=== PATIENT | female | born 1950 | race Caucasian/White ===

== ENCOUNTER 2024-07-27 11:37 | Observation (INO) | payer MEDICARE ==
[2024-07-27] MEDS ORDERED: Sterile H2O 10 ml IJ ONE (12:22)
[2024-07-27] MEDS ORDERED: solu-MEDROL ONE (12:23)
[2024-07-27] MEDS ORDERED: DUONEB 0.5-3 MG/3 ml Neb IH ONE (12:26)
[2024-07-27] MEDS: solu-MEDROL 125 MG, Sterile H2O 10 ml 2 ML IV ONE (12:34)
[2024-07-27] MEDS: DUONEB 0.5-3 MG/3 ml Neb IH ONE (12:38)
[2024-07-27 12:47] LABS: Absolute Neutrophil Ct (ANC) 3.47 x10^3/uL (1.56-6.13); BASOPHIL % 0.2 % (0.1-1.2); Basophil (Absolute #) 0.01 x10^3/uL (0.01-0.08); Eosinophil % 0.5 % (0.7-5.8); Eosinophil (Absolute #) 0.02 x10^3/uL (0.04-0.36); Hematocrit 41.3 % (34.1-44.9); Hemoglobin 14.6 g/dL (11.2-15.7); IMMATURE GRAN # 0.02 x10^3u/L (0.001-0.031); IMMATURE GRAN % 0.5 % (0.001-0.429); Lymphocyte (Absolute #) 0.46 x10^3/uL (1.18-3.74); Lymphocytes % 10.8 % (19.3-51.7); Mean Cell Volume 84.8 fL (79.4-94.8); Mean Corpuscular Hgb Concent. 35.4 g/dL (32.2-35.5); Mean Platelet Volume 9.9 fL (9.4-12.3); Monocyte (Absolute #) 0.29 x10^3/uL (0.24-0.86); Monocytes % 6.8 % (4.7-12.5); Neutrophil % 81.2 % (34.0-71.1); Platelet Count 254 x10^3/uL (182-369); Red Blood Count 4.87 x10^6/uL (3.93-5.22); Red Cell Distribution Width 12.5 % (11.7-14.4); White Blood Count 4.3 x10^3/uL (3.98-10.04)
--- NOTE | 2024-07-27 12:55 | XRAY ---
Indication: Short of breath. Comparison: None Portable chest hyperinflated and clear with incidental tiny left lung calcified granuloma. Heart not enlarged. Bony thorax intact with osteopenia, mild degenerative changes, and prior right axillary luciano dissection. Comparison: Nonacute hyperinflated chest with chronic features.
[2024-07-27 13:11] LABS: ALBUMIN 4.4 g/dL (3.5-5.0); ANION GAP 13.8 MEQ/L (5-15); BILIRUBIN,TOTAL 0.9 mg/dL (0.2-1.3); Calcium 9.1 mg/dL (8.4-10.2); Creatinine 1 0.65 mg/dL (0.52-1.04); EST GLOMERULAR FILTRATION RATE 94.1 ML/MIN; MAGNESIUM 1.5 mg/dL (1.6-2.3); Potassium 3.5 mmol/L (3.5-5.1)
[2024-07-27 13:25] LABS: INFLUENZA B NEGATIVE (NEGATIVE); RESPIRATORY SYNCTIAL VIRUS NEGATIVE (NEGATIVE); SARS-CoV-2 Xpert Express NEGATIVE (NEGATIVE)
[2024-07-27 13:58] LABS: INFLUENZA A POSITIVE (NEGATIVE)
[2024-07-27] MEDS ORDERED: VIBRAMYCIN 100 MG IV ONE (14:14)
[2024-07-27] MEDS ORDERED: Tamiflu 75MG Capsule PO ONE (14:14)
[2024-07-27] MEDS ORDERED: D5w 100ML Mini Bag 100 ML 100 ML IV ONE (14:15)
[2024-07-27] MEDS: Tamiflu 75MG Capsule PO ONE (14:15)
[2024-07-27] MEDS: VIBRAMYCIN 100 MG*** 100 MG in Dextrose 5%/Water IV Soln. 100ML PLUS BAG 100 ML IV SCH (14:16)
--- NOTE | 2024-07-27 14:25 | ERPHSYRPT ---
- History of Present Illness Time Seen by Provider: 07/27/24 11:39 Source: patient, family Exam Limitations: no limitations Patient Subjective Stated Complaint: SOB Triage Nursing Assessment: Patient ambulated back to ED and transferred self to bed. Patient A+O X.3 Patient's skin pink, warm and dry. Patient was seen at [facility] in [place] and tested negative for flu. Patient was sent to ER for eval due to SOB and low O2 sat. Initial O2 sat noted was 88% on room air. O2 applied at 2 liters per N/C. Patient denies pain or discomfort. Patient states since Wednesday she has had productive cough with thick yellow sputum, headache/bodyaches and fatigue since Wednesday. Lungs noted to have wheezing thoughout. Physician History: 73-year-old female with multiple medical problems including oral cancer status p ost resection/chemo/radiation completed last month, PE/DVT on Eliquis, hypertension, hyperlipidemia, COPD, tobacco abuse is sent in [facility] from [facility] for further evaluation of patient's oxygen saturation of 88% on room air. Patient oxygen saturation is 88% on room air on presentation, placed on 2 L oxygen and improved in low 90s. Patient reports worsening cough, aches and pains all over and increasing shortness of breath for the last 2 to 3 days. Has been around family members with positive influenza. Denies any chest pain or palpitations. No fever or chills reported. No abdominal pain nausea vomiting. Allergies/Adverse Reactions: ciprofloxacin [From Cipro] Allergy (Verified 07/27/24 11:47) erythromycin base Allergy (Verified 07/27/24 11:47) Penicillins Allergy (Verified 07/27/24 11:47) Sulfa (Sulfonamide Antibiotics) Allergy (Verified 07/27/24 11:47) Home Medications: Apixaban [Eliquis] 1 tab PO BID 07/27/24 [History] Cholecalciferol (Vitamin D3) [Vitamin D] 2,000 unit PO DAILY 07/27/24 [History] Levothyroxine Sodium 75 Mcg [Synthroid 75 Mcg] 1 tab PO DAILY 07/27/24 [History] Metoprolol Succinate 100 mg [Toprol Xl 100 MG] 1 tab PO DAILY 07/27/24 [History] PANTOPRAZOLE 40 mg Tablet [Protonix 40MG Tablet] 1 tab PO BID 07/27/24 [History] Potassium Chloride 1 tab PO DAILY 07/27/24 [History] Simvastatin 1 tab PO DAILY 07/27/24 [History] Spironolactone 1 tab PO DAILY 07/27/24 [History] Torsemide 20 mg [Demadex 20 mg] 1 tab PO DAILY 07/27/24 [History] Hx Influenza Vaccination/Date Given: No Hx Pneumococcal Vaccination/Date Given: No Immunizations Up to Date: Yes Travel Risk - International Travel Have you traveled outside of the country in past 3 weeks: No - Emerging Infectious Disease Are you exhibiting symptoms associated with any current EIDs: Yes Symptoms: Cough: New Onset, Diarrhea, Headaches/Body Aches/, Shortness of Breath - Review of Systems Constitutional: Fatigue, Weakness Eyes: No Symptoms Ears, Nose, & Throat: Mouth Pain, Throat Swelling Respiratory: Cough, Dyspnea Cardiac: No Symptoms Abdominal/Gastrointestinal: No Symptoms Genitourinary Symptoms: No Symptoms Musculoskeletal: Arthralgias Skin: No Symptoms Neurological: No Symptoms Endocrine: No Symptoms Immunological/Allergic: No Symptoms - Past Medical History Pertinent Past Medical History: Yes Neurological History: No Pertinent History ENT History: No Pertinent History Cardiac History: High Cholesterol, Hypertension Respiratory History: No Pertinent History Endocrine Medical History: Hypothyroidism Musculoskeletal History: No Pertinent History GI Medical History: GERD Female Reproductive Disorders: Breast Cancer Other Medical History: 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 Breast cancer right breast. 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 Removal of polyps from vocal cords. partial removal of thyroid. muliple surgeries on kristy feet. Removal of part of tongue and left jaw. - Social History Smoking Status: Current some day smoker How long have you smoked: years Exposure to second hand smoke: No Drug Use: none - Social Determinants of Health Will the patient participate in the screening: Yes Do you worry about a steady place to live?: No Do you have any problems with any of the following?: No known problems In the past 12 months,have you had to go without utilities?: No Transportation Issues: No Has anyone in your support network made you feel unsafe?: No Have you or anyone in your house had to go without enough: No - Nursing Vital Signs Nursing Vital Signs: Initial Vital Signs Respiratory Rate 62 H 07/27/24 11:46 Blood Pressure 165/67 07/27/24 11:46 O2 Sat by Pulse Oximetry 95 07/27/24 11:46 Pain Scale Pain Intensity 0 - Physical Exam General Appearance: no apparent distress, alert Eye Exam: PERRL/EOMI Ears, Nose, Throat Exam: hearing grossly normal, pharyngeal erythema Neck Exam: normal inspection, non-tender, supple, full range of motion Respiratory Exam: diminished breath sounds, wheezing Cardiovascular/Chest Exam: normal heart sounds, regular rate/rhythm Abdominal/Gastrointestinal Exam: soft, normal bowel sounds, No tenderness Extremity Exam: non-tender, normal range of motion, normal inspection Neurologic Exam: alert, oriented x 3, cooperative, director of digital technology II-XII nml as tested Skin Exam: normal color SpO2 Interpretation: O2 applied SpO2: 91 O2 Delivery: Nasal Cannula - Course EKG Interpreted by Me: RATE (54), Sinus Shree, NORMAL AXIS, Q-wave, Non-specific ST Changes Ordered Tests: Active Orders 24 hr Category Date Time Status Laboratory Tech STAT Care 07/27/24 12:05 Active EKG-ER Only STAT Care 07/27/24 12:04 Active IV Insertion STAT Care 07/27/24 12:04 Active Oxygen-ED Only Nasal Cannula 2 lpm Care 07/27/24 12:04 Active CHEST 1 VIEW (PORTABLE) Stat Exams 07/27/24 12:04 Completed BLOOD CULTURE Stat Lab 07/27/24 12:30 Received CBC W DIFF Stat Lab 07/27/24 12:48 Completed CMP Stat Lab 07/27/24 12:20 Completed Lactic Acid Stat Lab 07/27/24 12:30 Completed MAGNESIUM Stat Lab 07/27/24 12:20 Completed NT PRO BNPII Stat Lab 07/27/24 12:20 Completed TROPONIN Q4H Lab 07/27/24 12:20 Completed TROPONIN Q4H Lab 07/27/24 16:15 Ordered TROPONIN Q4H Lab 07/27/24 20:15 Ordered Respiratory Therapy Assessment DAILY RT 07/27/24 12:54 Active Transfer Order Routine Transfer 07/27/24 Ordered Medication Summary Generic Name Dose Route Start Last Admin Trade Name Freq PRN Reason Stop Dose Admin Doxycycline Hyclate 100 mg/ 100 mls @ 100 mls/hr 07/27/24 22:00 07/27/24 14:16 Dextrose IV 08/26/24 21:59 100 mls/hr Q12HT HERMINIA Administration Discontinued Medications Generic Name Dose Route Start Last Admin Trade Name Adelina PRN Reason Stop Dose Admin Albuterol/Ipratropium 3 ml 07/27/24 12:04 07/27/24 12:38 Ipratropium/Albuterol Sulfate 3 Ml Ampul.Neb IH 07/27/24 12:05 3 ml STAT ONE Administration Albuterol/Ipratropium Confirm 07/27/24 12:26 Ipratropium/Albuterol Sulfate 3 Ml Ampul.Neb Administered 07/27/24 12:27 Dose 3 ml IH .STK-MED ONE Methylprednisolone Sodium 0 mg 07/27/24 12:04 07/27/24 12:34 Succinate 125 mg/ Sterile IV 07/27/24 12:05 125 mg Water 2 ml STAT ONE Administration Doxycycline Hyclate Confirm 07/27/24 14:14 Doxycycline Hyclate 100 Mg/Vial Injection Administered 07/27/24 14:15 Dose 100 mg IV .STK-MED ONE Aztreonam 2 gm/ Sodium 100 mls @ 200 mls/hr 07/27/24 13:52 Chloride IV 07/27/24 14:21 STAT ONE Dextrose Confirm 07/27/24 14:15 D5w 100ml Mini Bag 100 Ml Administered 07/27/24 14:16 Dose 100 mls @ ud IV .STK-MED ONE Methylprednisolone Sodium Succinate Confirm 07/27/24 12:23 Methylprednis Sod Succ 125 Mg/2 Ml Vial Administered 07/27/24 12:24 Dose 125 mg .ROUTE .STK-MED ONE Oseltamivir Phosphate 75 mg 07/27/24 14:03 07/27/24 14:15 Oseltamivir 75 Mg Cap PO 07/27/24 14:04 75 mg STAT ONE Administration Oseltamivir Phosphate Confirm 07/27/24 14:14 Oseltamivir 75 Mg Cap Administered 07/27/24 14:15 Dose 75 mg PO .STK-MED ONE Sterile Water Confirm 07/27/24 12:22 Water For Injection,Sterile 10 Ml Vial Administered 07/27/24 12:23 Dose 10 ml IJ .STK-MED ONE Lab/Rad Data: Laboratory Result Diagrams 07/27/24 12:48 07/27/24 12:20 Laboratory Results 07/27/24 07/27/24 07/27/24 Range/Units 12:48 12:32 12:30 WBC 4.3 (3.98-10.04) x10^3/uL RBC 4.87 (3.93-5.22) x10^6/uL Hgb 14.6 (11.2-15.7) g/dL Hct 41.3 (34.1-44.9) % MCV 84.8 (79.4-94.8) fL MCH 30.0 (25.6-32.2) pg MCHC 35.4 (32.2-35.5) g/dL RDW 12.5 (11.7-14.4) % Plt Count 254 (182-369) x10^3/uL MPV 9.9 (9.4-12.3) fL Gran % 81.2 H (34.0-71.1) % Immature Gran % (Auto) 0.5 H (0.001-0.429) % Nucleat RBC Rel Count 0.0 (0.00-0.2) % Eos # (Auto) 0.02 L (0.04-0.36) x10^3/uL Immature Gran # (Auto) 0.02 (0.001-0.031) x10^3u/L Absolute Lymphs (auto) 0.46 L (1.18-3.74) x10^3/uL Absolute Monos (auto) 0.29 (0.24-0.86) x10^3/uL Absolute Nucleated RBC 0.00 (0.00-0.012) x10^3u/L Lymphocytes % 10.8 L (19.3-51.7) % Monocytes % 6.8 (4.7-12.5) % Eosinophils % 0.5 L (0.7-5.8) % Basophils % 0.2 (0.1-1.2) % Absolute Granulocytes 3.47 (1.56-6.13) x10^3/uL Basophils # 0.01 (0.01-0.08) x10^3/uL Sodium (135-145) mmol/L Potassium (3.5-5.1) mmol/L Chloride (98-107) mmol/L Carbon Dioxide (22-30) mmol/L Anion Gap (5-15) MEQ/L BUN (7-17) mg/dL Creatinine (0.52-1.04) mg/dL Estimated GFR ML/MIN Glucose (74-106) mg/dL Lactic Acid 1.3 (0.4-2.0) Calcium (8.4-10.2) mg/dL Magnesium (1.6-2.3) mg/dL Total Bilirubin (0.2-1.3) mg/dL AST (14-36) U/L ALT (0-35) U/L Alkaline Phosphatase (38-126) U/L Troponin I (0.000-0.033) ng/mL NT-Pro-B Natriuret Pep (<300) pg/mL Serum Total Protein (6.3-8.2) g/dL Albumin (3.5-5.0) g/dL Influenza Type A Ag POSITIVE A (NEGATIVE) Influenza Type B Ag NEGATIVE (NEGATIVE) RSV (PCR) NEGATIVE (NEGATIVE) SARS-CoV-2 (PCR) NEGATIVE (NEGATIVE) 07/27/24 07/27/24 Range/Units 12:20 12:20 WBC (3.98-10.04) x10^3/uL RBC (3.93-5.22) x10^6/uL Hgb (11.2-15.7) g/dL Hct (34.1-44.9) % MCV (79.4-94.8) fL MCH (25.6-32.2) pg MCHC (32.2-35.5) g/dL RDW (11.7-14.4) % Plt Count (182-369) x10^3/uL MPV (9.4-12.3) fL Gran % (34.0-71.1) % Immature Gran % (Auto) (0.001-0.429) % Nucleat RBC Rel Count (0.00-0.2) % Eos # (Auto) (0.04-0.36) x10^3/uL Immature Gran # (Auto) (0.001-0.031) x10^3u/L Absolute Lymphs (auto) (1.18-3.74) x10^3/uL Absolute Monos (auto) (0.24-0.86) x10^3/uL Absolute Nucleated RBC (0.00-0.012) x10^3u/L Lymphocytes % (19.3-51.7) % Monocytes % (4.7-12.5) % Eosinophils % (0.7-5.8) % Basophils % (0.1-1.2) % Absolute Granulocytes (1.56-6.13) x10^3/uL Basophils # (0.01-0.08) x10^3/uL Sodium 123 L (135-145) mmol/L Potassium 3.5 (3.5-5.1) mmol/L Chloride 81 L (98-107) mmol/L Carbon Dioxide 32 H (22-30) mmol/L Anion Gap 13.8 (5-15) MEQ/L BUN 12 (7-17) mg/dL Creatinine 0.65 (0.52-1.04) mg/dL Estimated GFR 94.1 ML/MIN Glucose 89 (74-106) mg/dL Lactic Acid (0.4-2.0) Calcium 9.1 (8.4-10.2) mg/dL Magnesium 1.5 L (1.6-2.3) mg/dL Total Bilirubin 0.90 (0.2-1.3) mg/dL AST 43 H (14-36) U/L ALT 39 H (0-35) U/L Alkaline Phosphatase 98 (38-126) U/L Troponin I < 0.012 (0.000-0.033) ng/mL NT-Pro-B Natriuret Pep 196 (<300) pg/mL Serum Total Protein 7.0 (6.3-8.2) g/dL Albumin 4.4 (3.5-5.0) g/dL Influenza Type A Ag (NEGATIVE) Influenza Type B Ag (NEGATIVE) RSV (PCR) (NEGATIVE) SARS-CoV-2 (PCR) (NEGATIVE) - Progress Progress: improved, re-examined Air Movement: fair Progress Note: 07/27/24 14:39 73-year-old with multiple medical problems including PE/DVT on Eliquis, COMMUNICATIONS ANALYST D/tobacco use/hypertension/oral cancer status post chemoradiation recently is evaluated for increasing shortness of breath and patient was hypoxic with sats in upper 80s. She is placed on 2 L oxygen with improvement in saturation to low 90s and given Solu-Medrol and DuoNeb, feeling much better on reevaluation. Chest x-ray is negative for any acute cardiopulmonary findings. EKG is sinus bradycardia with no ST elevation, does have Q waves. Normal white count, chemistries with a sodium of 123, no previous comparison available. Patient has nonfocal neuroexam. She is not confused or altered at all. She has a positive influenza A and started on Tamiflu. Has mild Hypokit [employer], will do IV replacement. Patient is unsure about her history of hyponatremia in the past. Will leave it up to hospitalist to manage it I believe patient has a combination of COPD exacerbation and influenza, started on antibiotics. She is currently on 2 L oxygen, does not use oxygen at home. Discussed with Dr. Shelby and patient is being admitted. Discussed the results of workup with patient and family and plan of admission which they understand and agree. Blood Culture(s) Obtained: Yes Antibiotics given: Yes Discussed with Dr.: Other (Dr. Shelby hospitalist) Will see patient in: hospital (observation) Counseled pt/family regarding: lab results, diagnosis, rad results, smoking cessation Medical Desision Making - Independent Historian Additional History obtained from: Child - Discussion of managment Care discussed with:: hospitalist Reviewed:: Test results Agreed on:: Treatment plan, place in obs Will see patient: in hospital - Diagnostic Testing Diagnostic test were ordered, analyzed, and reviewed by me: Yes Radiological Interpretation: Reviewed by me - Risk of complications The pt has a mod risk of morbidity or mortality based on: Need for prescription drug management The pt has a high risk of morbidity or mortality based on: Decision regarding hospitilization or escalation of hosp level of care - Departure Departure Disposition: Observation Clinical Impression: COPD with acute exacerbation, Influenza A, Hypomagnesemia, Hyponatremia Condition: Stable Critical Care Time: No Referrals: ALIA ROSARIO MD [Primary Care Provider] - Follow up/PCP as directed Instructions: Chronic Obstructive Pulmonary Disease
[2024-07-27 14:59] LABS: Slide Review 1 YES
--- NOTE | 2024-07-27 15:42 | PCM.HP ---
<NENA AVILA - Last Filed: 07/27/24 16:17> History of Present Illness - Chief Complaint Chief Complaint: Dyspnea/Flu A/ hyponatremia/hypomagnesemia/COPD exacerbation Date: 07/27/24 History of Present Illness: Ms. Drew is a 73-year-old female with a pmhx of oral cancer status post resection/chemo/radiation completed last month, PE/DVT (Apr 2024) on Eliquis, hypertension,right breast cancer s/p lumpectomy/radiation, partial thyroidectomy (on synthroid), hyperlipidemia, COPD, tobacco abuse who presented to ED from urgent care for further evaluation of hypoxia 07/27/24. Patient has complaints of a productive cough with yellow sputum, shortness of breath,diarrhea, chills, headache, and body aches since 07/21/24. She reports was diagnosed today with influenza and her brother last week secondary to complications of influenza. Denies fever, cp, abdominal pain, MATOS, dizziness, N/V/D. Upon arrival to ED patient was hypertensive, tachypneic, and hypoxic with oxygen saturations in the low 80s on RA. Patient was placed on 2L NC with noted improvement. CXR demonstrates hyperinflated lungs with chronic features. Lab findings remarkable for hyponatremia and hypomagnesemia, and positive influenza A. Patient given Tamiflu, doxycycline, aztreonam, duonebs and solumedrol in ED. Admit for COPD exacerbation secondary to influenza A, hyponatremia, and hypomagnesemia. Plan for supportive care and electrolyte replenishment. - Review of Systems Constitutional: Chills, Fatigue, Weakness Eyes: No Symptoms Ears, Nose, & Throat: No Symptoms Respiratory: Cough, Short Of Breath Cardiac: No Symptoms Abdominal/Gastrointestinal: No Symptoms Genitourinary Symptoms: No Symptoms Musculoskeletal: No Symptoms Skin: No Symptoms Neurological: No Symptoms Psychological: No Symptoms Endocrine: No Symptoms Hematologic/Lymphatic: No Symptoms Immunological/Allergic: No Symptoms Medications & Allergies Home Medications: Home Medication List Apixaban [Eliquis] 1 tab PO BID 07/27/24 [History Confirmed 07/27/24] Cholecalciferol (Vitamin D3) [Vitamin D] 2,000 unit PO DAILY 07/27/24 [History Confirmed 07/27/24] Levothyroxine Sodium 75 Mcg [Synthroid 75 Mcg] 1 tab PO DAILY 07/27/24 [History Confirmed 07/27/24] Metoprolol Succinate 100 mg [Toprol Xl 100 MG] 1 tab PO DAILY 07/27/24 [History Confirmed 07/27/24] PANTOPRAZOLE 40 mg Tablet [Protonix 40MG Tablet] 1 tab PO BID 07/27/24 [History Confirmed 07/27/24] Potassium Chloride 1 tab PO DAILY 07/27/24 [History Confirmed 07/27/24] Simvastatin 1 tab PO DAILY 07/27/24 [History Confirmed 07/27/24] Spironolactone 1 tab PO DAILY 07/27/24 [History Confirmed 07/27/24] Allergies/Adverse Reactions: Allergies Allergy/AdvReac Type Severity Reaction Status Date / Time ciprofloxacin [From Cipro] Allergy Verified 07/27/24 11:47 erythromycin base Allergy Verified 07/27/24 11:47 Penicillins Allergy Verified 07/27/24 15:45 Sulfa (Sulfonamide Allergy Verified 07/27/24 11:47 Antibiotics) - Past Medical History Past Medical History: Yes Neurological History: No Pertinent History ENT History: No Pertinent History Cardiac History: High Cholesterol, Hypertension Respiratory History: No Pertinent History Endocrine Medical History: Hypothyroidism Musculoskelatal History: No Pertinent History GI Medical History: GERD Reproductive Disorders: Breast Cancer Comment: 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 Breast cancer right breast. 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 Removal of polyps from vocal cords. partial removal of thyroid. muliple surgeries on kristy feet. Removal of part of tongue and left jaw. - Social History Smoking Status: Current some day smoker How long have you smoked: years Exposure to second hand smoke: No Alcohol: None Drug Use: none - Social Determinants of Health Will the patient participate in the screening: Yes Do you worry about a steady place to live?: No Do you have any problems with any of the following?: No known problems In the past 12 months,have you had to go without utilities?: No Have you or anyone in your house had to go without enough: No Transportation Issues: No Has anyone in your support network made you feel unsafe?: No - Physical Exam Vital Signs: Vital Signs - 24 hr Temp Pulse Resp BP BP Pulse Ox 07/27/24 15:00 58 L 18 141/75 95 07/27/24 14:46 91 L 07/27/24 14:30 157/70 96 07/27/24 14:00 60 18 135/64 91 L 07/27/24 13:30 65 20 130/62 95 07/27/24 13:00 62 24 137/90 93 L 07/27/24 12:55 92 L 07/27/24 12:30 58 H 149/83 97 07/27/24 12:00 61 H 138/88 93 L 07/27/24 11:48 98.5 F 61 35 H 165/67 88 L 07/27/24 11:46 62 H 165/67 95 General Appearance: no apparent distress Neurologic Exam: alert, oriented x 3, cooperative Eye Exam: PERRL/EOMI Ears, Nose, Throat Exam: normal ENT inspection Neck Exam: normal inspection Respiratory Exam: diminished breath sounds Cardiovascular Exam: regular rate/rhythm, normal heart sounds Gastrointestinal/Abdomen Exam: soft, normal bowel sounds Pelvic Exam: not done Rectal Exam: deferred Back Exam: normal inspection Extremity Exam: normal inspection Skin Exam: normal color Results - Labs Lab/Micro Results: Lab Results-Last 24 Hours 07/27/24 07/27/24 07/27/24 Range/Units 12:20 12:20 12:30 WBC (3.98-10.04) x10^3/uL RBC (3.93-5.22) x10^6/uL Hgb (11.2-15.7) g/dL Hct (34.1-44.9) % MCV (79.4-94.8) fL MCH (25.6-32.2) pg MCHC (32.2-35.5) g/dL RDW (11.7-14.4) % Plt Count (182-369) x10^3/uL MPV (9.4-12.3) fL Gran % (34.0-71.1) % Immature Gran % (Auto) (0.001-0.429) % Nucleat RBC Rel Count (0.00-0.2) % Eos # (Auto) (0.04-0.36) x10^3/uL Immature Gran # (Auto) (0.001-0.031) x10^3u/L Absolute Lymphs (auto) (1.18-3.74) x10^3/uL Absolute Monos (auto) (0.24-0.86) x10^3/uL Absolute Nucleated RBC (0.00-0.012) x10^3u/L Lymphocytes % (19.3-51.7) % Monocytes % (4.7-12.5) % Eosinophils % (0.7-5.8) % Basophils % (0.1-1.2) % Absolute Granulocytes (1.56-6.13) x10^3/uL Basophils # (0.01-0.08) x10^3/uL Sodium 123 L (135-145) mmol/L Potassium 3.5 (3.5-5.1) mmol/L Chloride 81 L (98-107) mmol/L Carbon Dioxide 32 H (22-30) mmol/L Anion Gap 13.8 (5-15) MEQ/L BUN 12 (7-17) mg/dL Creatinine 0.65 (0.52-1.04) mg/dL Estimated GFR 94.1 ML/MIN Glucose 89 (74-106) mg/dL Lactic Acid 1.3 (0.4-2.0) Calcium 9.1 (8.4-10.2) mg/dL Magnesium 1.5 L (1.6-2.3) mg/dL Total Bilirubin 0.90 (0.2-1.3) mg/dL AST 43 H (14-36) U/L ALT 39 H (0-35) U/L Alkaline Phosphatase 98 (38-126) U/L Troponin I < 0.012 (0.000-0.033) ng/mL NT-Pro-B Natriuret Pep 196 (<300) pg/mL Serum Total Protein 7.0 (6.3-8.2) g/dL Albumin 4.4 (3.5-5.0) g/dL Influenza Type A Ag (NEGATIVE) Influenza Type B Ag (NEGATIVE) RSV (PCR) (NEGATIVE) SARS-CoV-2 (PCR) (NEGATIVE) Slides for Path Review 07/27/24 07/27/24 Range/Units 12:32 12:48 WBC 4.3 (3.98-10.04) x10^3/uL RBC 4.87 (3.93-5.22) x10^6/uL Hgb 14.6 (11.2-15.7) g/dL Hct 41.3 (34.1-44.9) % MCV 84.8 (79.4-94.8) fL MCH 30.0 (25.6-32.2) pg MCHC 35.4 (32.2-35.5) g/dL RDW 12.5 (11.7-14.4) % Plt Count 254 (182-369) x10^3/uL MPV 9.9 (9.4-12.3) fL Gran % 81.2 H (34.0-71.1) % Immature Gran % (Auto) 0.5 H (0.001-0.429) % Nucleat RBC Rel Count 0.0 (0.00-0.2) % Eos # (Auto) 0.02 L (0.04-0.36) x10^3/uL Immature Gran # (Auto) 0.02 (0.001-0.031) x10^3u/L Absolute Lymphs (auto) 0.46 L (1.18-3.74) x10^3/uL Absolute Monos (auto) 0.29 (0.24-0.86) x10^3/uL Absolute Nucleated RBC 0.00 (0.00-0.012) x10^3u/L Lymphocytes % 10.8 L (19.3-51.7) % Monocytes % 6.8 (4.7-12.5) % Eosinophils % 0.5 L (0.7-5.8) % Basophils % 0.2 (0.1-1.2) % Absolute Granulocytes 3.47 (1.56-6.13) x10^3/uL Basophils # 0.01 (0.01-0.08) x10^3/uL Sodium (135-145) mmol/L Potassium (3.5-5.1) mmol/L Chloride (98-107) mmol/L Carbon Dioxide (22-30) mmol/L Anion Gap (5-15) MEQ/L BUN (7-17) mg/dL Creatinine (0.52-1.04) mg/dL Estimated GFR ML/MIN Glucose (74-106) mg/dL Lactic Acid (0.4-2.0) Calcium (8.4-10.2) mg/dL Magnesium (1.6-2.3) mg/dL Total Bilirubin (0.2-1.3) mg/dL AST (14-36) U/L ALT (0-35) U/L Alkaline Phosphatase (38-126) U/L Troponin I (0.000-0.033) ng/mL NT-Pro-B Natriuret Pep (<300) pg/mL Serum Total Protein (6.3-8.2) g/dL Albumin (3.5-5.0) g/dL Influenza Type A Ag POSITIVE A (NEGATIVE) Influenza Type B Ag NEGATIVE (NEGATIVE) RSV (PCR) NEGATIVE (NEGATIVE) SARS-CoV-2 (PCR) NEGATIVE (NEGATIVE) Slides for Path Review YES - Radiology Impressions Radiology Exams & Impressions: Radiology Procedures Category Date Time Status CHEST 1 VIEW (PORTABLE) Stat Exams 07/27/24 12:04 Completed - Other Procedures and Tests Respiratory Therapy 07/27/24 12:54 Respiratory Therapy Assessment DAILY Assessment/Plan (1) Acute respiratory failure with hypoxia Current Visit: Yes Status: Acute Assessment & Plan: -CXR reviewed with hyperinflated with chronic findings -Secondary to Flu A/copd exacerbation -Supplemental oxygen with goal spo2 > 91% -RT eval -Nebs/INH -Tamiflu for influenza A -consider CT /pulm consult if no improvement -Flu A + -Solumedrol 40mg bid -ABG if significant hypoxia/ lethargy Code(s): J96.01 - ACUTE RESPIRATORY FAILURE WITH HYPOXIA (2) Influenza A Current Visit: Yes Status: Acute Assessment & Plan: -see ARF -Tamiflu -Supportive care Code(s): J10.1 - FLU DUE TO OTH IDENT INFLUENZA VIRUS W OTH RESP MANIFEST (3) COPD with acute exacerbation Current Visit: Yes Status: Acute Assessment & Plan: -See ARF Code(s): J44.1 - CHRONIC OBSTRUCTIVE PULMONARY DISEASE W (ACUTE) EXACERBATION (4) History of pulmonary embolism Current Visit: Yes Status: Acute Assessment & Plan: -Diagnosed April 2024 Continue home Eliquis Code(s): Z86.711 - PERSONAL HISTORY OF PULMONARY EMBOLISM (5) HTN (hypertension) Current Visit: Yes Status: Acute Assessment & Plan: -continue home meds Code(s): I10 - ESSENTIAL (PRIMARY) HYPERTENSION (6) HLD (hyperlipidemia) Current Visit: Yes Status: Acute Assessment & Plan: -continue statin Code(s): E78.5 - HYPERLIPIDEMIA, UNSPECIFIED (7) Smoker Current Visit: Yes Status: Acute Assessment & Plan: -advised cessation - nicotine patch Code(s): F17.200 - NICOTINE DEPENDENCE, UNSPECIFIED, UNCOMPLICATED (8) Oral-mouth cancer Current Visit: Yes Status: Acute Assessment & Plan: -Jaw/tongue - s/p resection/chemo/radiation completed last month -Pet Scan in June showed remission -Follows with Dr. Olguin (oncology) and Mele (rad oncololgy) Code(s): C06.9 - MALIGNANT NEOPLASM OF MOUTH, UNSPECIFIED (9) Hypomagnesemia Current Visit: Yes Status: Acute Assessment & Plan: -Mag level reviewed at 1.5- will replenish and recheck in the a.m. Code(s): E83.42 - HYPOMAGNESEMIA (10) Hyponatremia Current Visit: Yes Status: Acute Assessment & Plan: -Patient states this is chronic -Poor oral consumption ?SIADH -Hypovolemic -IVF -Seizure precautions Code(s): E87.1 - HYPO-OSMOLALITY AND HYPONATREMIA (11) DVT (deep venous thrombosis) Current Visit: Yes Status: Acute Assessment & Plan: -Right leg - on Eliquis since April 2024 - continue Code(s): I82.409 - ACUTE EMBOLISM AND THOMBOS UNSP DEEP VN UNSP LOWER EXTREMITY (12) History of partial thyroidectomy Current Visit: Yes Status: Acute Assessment & Plan: -On synthroid -continue Code(s): E89.0 - POSTPROCEDURAL HYPOTHYROIDISM (13) History of right breast cancer Current Visit: Yes Status: Acute Assessment & Plan: -S/P lumpectomy and radiation VTE: Eliquis PPI: protonix Dispo: 1-2 days Code(s): Z85.3 - PERSONAL HISTORY OF MALIGNANT NEOPLASM OF BREAST Telemedicine Encounter - Telemedicine Encounter Telemedicine Encounter: "The entirety of this encounter was performed via Telemedicine" This visit was performed using real-time audio and video connection between my location and thepatients locationwith the assistance of a surrogateat the patients location. Written or verbal consent was obtained from the patient/guardian to perform this visit using[facility] [employer] technology. Any patient questions regarding the telemedicine interaction were answered. <GABY DUTTA - Last Filed: 07/27/24 21:10> History of Present Illness - Chief Complaint History of Present Illness: is a 73 year old female. - Physical Exam Vital Signs: Vital Signs - 24 hr Temp Pulse Resp BP BP Pulse Ox 07/27/24 20:00 98.4 F 55 L 17 129/66 92 L 07/27/24 17:32 63 18 91 L 07/27/24 16:45 97.9 F 58 L 16 139/67 90 L 07/27/24 15:57 97.9 F 58 L 16 139/67 90 L 07/27/24 15:55 58 L 16 91 L 07/27/24 15:50 91 L 07/27/24 15:00 58 L 18 141/75 95 07/27/24 14:46 91 L 07/27/24 14:30 157/70 96 07/27/24 14:00 60 18 135/64 91 L 07/27/24 13:30 65 20 130/62 95 07/27/24 13:00 62 24 137/90 93 L 07/27/24 12:55 92 L 07/27/24 12:30 58 H 149/83 97 07/27/24 12:00 61 H 138/88 93 L 07/27/24 11:48 98.5 F 61 35 H 165/67 88 L 07/27/24 11:46 62 H 165/67 95 Results - Labs Lab/Micro Results: Lab Results-Last 24 Hours 07/27/24 07/27/24 07/27/24 Range/Units 12:20 12:20 12:30 WBC (3.98-10.04) x10^3/uL RBC (3.93-5.22) x10^6/uL Hgb (11.2-15.7) g/dL Hct (34.1-44.9) % MCV (79.4-94.8) fL MCH (25.6-32.2) pg MCHC (32.2-35.5) g/dL RDW (11.7-14.4) % Plt Count (182-369) x10^3/uL MPV (9.4-12.3) fL Gran % (34.0-71.1) % Immature Gran % (Auto) (0.001-0.429) % Nucleat RBC Rel Count (0.00-0.2) % Eos # (Auto) (0.04-0.36) x10^3/uL Immature Gran # (Auto) (0.001-0.031) x10^3u/L Absolute Lymphs (auto) (1.18-3.74) x10^3/uL Absolute Monos (auto) (0.24-0.86) x10^3/uL Absolute Nucleated RBC (0.00-0.012) x10^3u/L Lymphocytes % (19.3-51.7) % Monocytes % (4.7-12.5) % Eosinophils % (0.7-5.8) % Basophils % (0.1-1.2) % Absolute Granulocytes (1.56-6.13) x10^3/uL Basophils # (0.01-0.08) x10^3/uL Sodium 123 L (135-145) mmol/L Potassium 3.5 (3.5-5.1) mmol/L Chloride 81 L (98-107) mmol/L Carbon Dioxide 32 H (22-30) mmol/L Anion Gap 13.8 (5-15) MEQ/L BUN 12 (7-17) mg/dL Creatinine 0.65 (0.52-1.04) mg/dL Estimated GFR 94.1 ML/MIN Glucose 89 (74-106) mg/dL Lactic Acid 1.3 (0.4-2.0) Calcium 9.1 (8.4-10.2) mg/dL Magnesium 1.5 L (1.6-2.3) mg/dL Total Bilirubin 0.90 (0.2-1.3) mg/dL AST 43 H (14-36) U/L ALT 39 H (0-35) U/L Alkaline Phosphatase 98 (38-126) U/L Troponin I < 0.012 (0.000-0.033) ng/mL NT-Pro-B Natriuret Pep 196 (<300) pg/mL Serum Total Protein 7.0 (6.3-8.2) g/dL Albumin 4.4 (3.5-5.0) g/dL TSH 3rd Generation (0.470-4.680) mIU/L Urine Color (Yellow) Urine Appearance (Clear) Urine pH (4.6-8.0) Ur Specific [place] (1.005-1.030) Urine Protein (Negative) Urine Glucose (UA) (Negative) mg/dL Urine Ketones (Negative) Urine Blood (Negative) Urine Nitrite (Negative) Urine Bilirubin (Negative) Urine Urobilinogen (0.2) mg/dL Ur Leukocyte Esterase (Negative) U Hyaline Cast (Auto) (0-2) /LPF Urine Microscopic RBC (0-5) /HPF Urine Microscopic WBC (0-5) /HPF Ur Epithelial Cells (None Seen) /HPF Urine Bacteria (None Seen) /HPF Urine Culture Reflexed (NO) Urine Sodium (30-90) mmol/L Influenza Type A Ag (NEGATIVE) Influenza Type B Ag (NEGATIVE) RSV (PCR) (NEGATIVE) SARS-CoV-2 (PCR) (NEGATIVE) Slides for Path Review 07/27/24 07/27/24 07/27/24 Range/Units 12:32 12:48 16:15 WBC 4.3 (3.98-10.04) x10^3/uL RBC 4.87 (3.93-5.22) x10^6/uL Hgb 14.6 (11.2-15.7) g/dL Hct 41.3 (34.1-44.9) % MCV 84.8 (79.4-94.8) fL MCH 30.0 (25.6-32.2) pg MCHC 35.4 (32.2-35.5) g/dL RDW 12.5 (11.7-14.4) % Plt Count 254 (182-369) x10^3/uL MPV 9.9 (9.4-12.3) fL Gran % 81.2 H (34.0-71.1) % Immature Gran % (Auto) 0.5 H (0.001-0.429) % Nucleat RBC Rel Count 0.0 (0.00-0.2) % Eos # (Auto) 0.02 L (0.04-0.36) x10^3/uL Immature Gran # (Auto) 0.02 (0.001-0.031) x10^3u/L Absolute Lymphs (auto) 0.46 L (1.18-3.74) x10^3/uL Absolute Monos (auto) 0.29 (0.24-0.86) x10^3/uL Absolute Nucleated RBC 0.00 (0.00-0.012) x10^3u/L Lymphocytes % 10.8 L (19.3-51.7) % Monocytes % 6.8 (4.7-12.5) % Eosinophils % 0.5 L (0.7-5.8) % Basophils % 0.2 (0.1-1.2) % Absolute Granulocytes 3.47 (1.56-6.13) x10^3/uL Basophils # 0.01 (0.01-0.08) x10^3/uL Sodium (135-145) mmol/L Potassium (3.5-5.1) mmol/L Chloride (98-107) mmol/L Carbon Dioxide (22-30) mmol/L Anion Gap (5-15) MEQ/L BUN (7-17) mg/dL Creatinine (0.52-1.04) mg/dL Estimated GFR ML/MIN Glucose (74-106) mg/dL Lactic Acid (0.4-2.0) Calcium (8.4-10.2) mg/dL Magnesium (1.6-2.3) mg/dL Total Bilirubin (0.2-1.3) mg/dL AST (14-36) U/L ALT (0-35) U/L Alkaline Phosphatase (38-126) U/L Troponin I < 0.012 (0.000-0.033) ng/mL NT-Pro-B Natriuret Pep (<300) pg/mL Serum Total Protein (6.3-8.2) g/dL Albumin (3.5-5.0) g/dL TSH 3rd Generation (0.470-4.680) mIU/L Urine Color (Yellow) Urine Appearance (Clear) Urine pH (4.6-8.0) Ur Specific [place] (1.005-1.030) Urine Protein (Negative) Urine Glucose (UA) (Negative) mg/dL Urine Ketones (Negative) Urine Blood (Negative) Urine Nitrite (Negative) Urine Bilirubin (Negative) Urine Urobilinogen (0.2) mg/dL Ur Leukocyte Esterase (Negative) U Hyaline Cast (Auto) (0-2) /LPF Urine Microscopic RBC (0-5) /HPF Urine Microscopic WBC (0-5) /HPF Ur Epithelial Cells (None Seen) /HPF Urine Bacteria (None Seen) /HPF Urine Culture Reflexed (NO) Urine Sodium (30-90) mmol/L Influenza Type A Ag POSITIVE A (NEGATIVE) Influenza Type B Ag NEGATIVE (NEGATIVE) RSV (PCR) NEGATIVE (NEGATIVE) SARS-CoV-2 (PCR) NEGATIVE (NEGATIVE) Slides for Path Review YES 07/27/24 07/27/24 07/27/24 Range/Units 19:00 19:00 19:13 WBC (3.98-10.04) x10^3/uL RBC (3.93-5.22) x10^6/uL Hgb (11.2-15.7) g/dL Hct (34.1-44.9) % MCV (79.4-94.8) fL MCH (25.6-32.2) pg MCHC (32.2-35.5) g/dL RDW (11.7-14.4) % Plt Count (182-369) x10^3/uL MPV (9.4-12.3) fL Gran % (34.0-71.1) % Immature Gran % (Auto) (0.001-0.429) % Nucleat RBC Rel Count (0.00-0.2) % Eos # (Auto) (0.04-0.36) x10^3/uL Immature Gran # (Auto) (0.001-0.031) x10^3u/L Absolute Lymphs (auto) (1.18-3.74) x10^3/uL Absolute Monos (auto) (0.24-0.86) x10^3/uL Absolute Nucleated RBC (0.00-0.012) x10^3u/L Lymphocytes % (19.3-51.7) % Monocytes % (4.7-12.5) % Eosinophils % (0.7-5.8) % Basophils % (0.1-1.2) % Absolute Granulocytes (1.56-6.13) x10^3/uL Basophils # (0.01-0.08) x10^3/uL Sodium (135-145) mmol/L Potassium (3.5-5.1) mmol/L Chloride (98-107) mmol/L Carbon Dioxide (22-30) mmol/L Anion Gap (5-15) MEQ/L BUN (7-17) mg/dL Creatinine (0.52-1.04) mg/dL Estimated GFR ML/MIN Glucose (74-106) mg/dL Lactic Acid (0.4-2.0) Calcium (8.4-10.2) mg/dL Magnesium (1.6-2.3) mg/dL Total Bilirubin (0.2-1.3) mg/dL AST (14-36) U/L ALT (0-35) U/L Alkaline Phosphatase (38-126) U/L Troponin I < 0.012 (0.000-0.033) ng/mL NT-Pro-B Natriuret Pep (<300) pg/mL Serum Total Protein (6.3-8.2) g/dL Albumin (3.5-5.0) g/dL TSH 3rd Generation (0.470-4.680) mIU/L Urine Color Yellow (Yellow) Urine Appearance Clear (Clear) Urine pH 5.0 (4.6-8.0) Ur Specific [place] <=1.005 (1.005-1.030) Urine Protein Negative (Negative) Urine Glucose (UA) Negative (Negative) mg/dL Urine Ketones 80 A (Negative) Urine Blood Negative (Negative) Urine Nitrite Negative (Negative) Urine Bilirubin Negative (Negative) Urine Urobilinogen 0.2 (0.2) mg/dL Ur Leukocyte Esterase Negative (Negative) U Hyaline Cast (Auto) NONE SEEN (0-2) /LPF Urine Microscopic RBC 0-2 (0-5) /HPF Urine Microscopic WBC 0-2 (0-5) /HPF Ur Epithelial Cells None Seen (None Seen) /HPF Urine Bacteria None Seen (None Seen) /HPF Urine Culture Reflexed NO (NO) Urine Sodium 19 L (30-90) mmol/L Influenza Type A Ag (NEGATIVE) Influenza Type B Ag (NEGATIVE) RSV (PCR) (NEGATIVE) SARS-CoV-2 (PCR) (NEGATIVE) Slides for Path Review 07/27/24 07/27/24 Range/Units 19:13 19:13 WBC (3.98-10.04) x10^3/uL RBC (3.93-5.22) x10^6/uL Hgb (11.2-15.7) g/dL Hct (34.1-44.9) % MCV (79.4-94.8) fL MCH (25.6-32.2) pg MCHC (32.2-35.5) g/dL RDW (11.7-14.4) % Plt Count (182-369) x10^3/uL MPV (9.4-12.3) fL Gran % (34.0-71.1) % Immature Gran % (Auto) (0.001-0.429) % Nucleat RBC Rel Count (0.00-0.2) % Eos # (Auto) (0.04-0.36) x10^3/uL Immature Gran # (Auto) (0.001-0.031) x10^3u/L Absolute Lymphs (auto) (1.18-3.74) x10^3/uL Absolute Monos (auto) (0.24-0.86) x10^3/uL Absolute Nucleated RBC (0.00-0.012) x10^3u/L Lymphocytes % (19.3-51.7) % Monocytes % (4.7-12.5) % Eosinophils % (0.7-5.8) % Basophils % (0.1-1.2) % Absolute Granulocytes (1.56-6.13) x10^3/uL Basophils # (0.01-0.08) x10^3/uL Sodium 122 L (135-145) mmol/L Potassium 3.6 (3.5-5.1) mmol/L Chloride 83 L (98-107) mmol/L Carbon Dioxide 24 (22-30) mmol/L Anion Gap 18.2 H (5-15) MEQ/L BUN 10 (7-17) mg/dL Creatinine 0.54 (0.52-1.04) mg/dL Estimated GFR 98.4 ML/MIN Glucose 161 H (74-106) mg/dL Lactic Acid (0.4-2.0) Calcium 9.0 (8.4-10.2) mg/dL Magnesium (1.6-2.3) mg/dL Total Bilirubin (0.2-1.3) mg/dL AST (14-36) U/L ALT (0-35) U/L Alkaline Phosphatase (38-126) U/L Troponin I (0.000-0.033) ng/mL NT-Pro-B Natriuret Pep (<300) pg/mL Serum Total Protein (6.3-8.2) g/dL Albumin (3.5-5.0) g/dL TSH 3rd Generation 1.202 (0.470-4.680) mIU/L Urine Color (Yellow) Urine Appearance (Clear) Urine pH (4.6-8.0) Ur Specific [place] (1.005-1.030) Urine Protein (Negative) Urine Glucose (UA) (Negative) mg/dL Urine Ketones (Negative) Urine Blood (Negative) Urine Nitrite (Negative) Urine Bilirubin (Negative) Urine Urobilinogen (0.2) mg/dL Ur Leukocyte Esterase (Negative) U Hyaline Cast (Auto) (0-2) /LPF Urine Microscopic RBC (0-5) /HPF Urine Microscopic WBC (0-5) /HPF Ur Epithelial Cells (None Seen) /HPF Urine Bacteria (None Seen) /HPF Urine Culture Reflexed (NO) Urine Sodium (30-90) mmol/L Influenza Type A Ag (NEGATIVE) Influenza Type B Ag (NEGATIVE) RSV (PCR) (NEGATIVE) SARS-CoV-2 (PCR) (NEGATIVE) Slides for Path Review - Radiology Impressions Radiology Exams & Impressions: Radiology Procedures Category Date Time Status CHEST 1 VIEW (PORTABLE) Stat Exams 07/27/24 12:04 Completed - Other Procedures and Tests Respiratory Therapy 07/27/24 15:35 Oxygen Nasal Cannula 2 lpm 07/27/24 15:55 Respiratory Therapy Assessment DAILY Telemedicine Encounter - Telemedicine Encounter Telemedicine Encounter: "The entirety of this encounter was performed via Telemedicine" This visit was performed using real-time audio and video connection between my location and thepatients locationwith the assistance of a surrogateat the patients location. Written or verbal consent was obtained from the patient/guardian to perform this visit usingWireless Seismiclemedicine technology. Any patient questions regarding the telemedicine interaction were answered. ROSALEE Encounter - ROSALEE Encounter Attestation ROSALEE Encounter Attestation: "IhtylerpersonalKANDIS Villarreal andkassandraiscussed pertinent aspects of their care with Nena Pang agree with the history, physical exam (any modifications based on my personal exam will be noted below), assessment, and plan as outlined in original note. Please see immediately below for my summary of findings and additional assessment and plan along with any meaningful corrections/explanations to the Subjective/Objective portions of the ROSALEE note will be noted." My portion of the encounter took place via telemedicine. -Hypoxia secondary to flu and COPD exacerbation. Admit for IV steroids, nebs, oxygen support. Start Tamiflu.
[2024-07-27] MEDS ORDERED: DUONEB 0.5-3 MG/3 ml Neb IH PRN (16:06)
[2024-07-27] MEDS ORDERED: Zofran 4 MG/2 ML VIAL IV PRN (16:42)
[2024-07-27] MEDS: Magnesium 1 Gm / 100 Ml D5W*** 100 ML IV SCH (17:40)
[2024-07-27] MEDS: AZACTAM 1 GM*** 2 GM in Sodium Chloride 0.9% 100 ML IV ONE (17:40)
[2024-07-27] MEDS: Nicoderm CQ 21 MG TOP SCH (17:41)
[2024-07-27] MEDS: MAGNESIUM SULF 2 G/50 ML BAG 2 GM/50 ML PIGGYBACK IV ONE (17:45)
[2024-07-27] MEDS: Sodium Chloride 0.9% 1000 ML 1,000 ML IV SCH (17:45)
[2024-07-27] MEDS: Klor Con PO SCH (17:45)
[2024-07-27] MEDS: SYNTHROID 75 MCG PO SCH (17:46)
[2024-07-27] MEDS: Toprol Xl 100 MG PO SCH (17:46)
[2024-07-27] MEDS: VITAMIN D PO SCH (17:46)
[2024-07-27] MEDS: ZOCOR 20MG PO SCH (17:46)
[2024-07-27] MEDS: Protonix 40MG Tablet PO SCH (17:46)
[2024-07-27 19:27] LABS: ANION GAP 18.2 MEQ/L (5-15); Creatinine 1 0.54 mg/dL (0.52-1.04); EST GLOMERULAR FILTRATION RATE 98.4 ML/MIN; Potassium 3.6 mmol/L (3.5-5.1)
[2024-07-27 20:22] LABS: Appearance Clear (Clear); Bacteria None Seen /HPF (None Seen); Bilirubin Negative (Negative); Blood Negative (Negative); Epithelial Cells None Seen /HPF (None Seen); Glucose, Urine Negative (Negative); Hyaline Casts NONE SEEN /LPF (0-2); Ketones 80 (Negative); Leukocyte Esterase Negative (Negative); Nitrite Negative (Negative); Protein,Urine Dip Negative (Negative); RBC 0-2 /HPF (0-5); Specific Gravity <=1.005 (1.005-1.030); Urobilinogen 0.2 mg/dL (0.2); WBC 0-2 /HPF (0-5)
[2024-07-27] MEDS: solu-MEDROL 40 MG, Sterile H2O 10 ml 1 ML IV SCH (21:00)
[2024-07-27] MEDS: ELIQUIS 2.5 MG TABLET PO SCH (21:00)
[2024-07-27] MEDS: Tamiflu 75MG Capsule PO SCH (21:00)
[2024-07-27] MEDS ORDERED: NON-FORMULARY ITEM (Apixaban [Eliquis] 5 MG Tablet) PO SCH (22:00)
[2024-07-27] MEDS: TYLENOL 325 MG PO PRN (22:22)
[2024-07-27 23:28] LABS: ANION GAP 16.6 MEQ/L (5-15); Calcium 8.8 mg/dL (8.4-10.2); Creatinine 1 0.53 mg/dL (0.52-1.04); EST GLOMERULAR FILTRATION RATE 98.8 ML/MIN; Potassium 3.6 mmol/L (3.5-5.1)
[2024-07-28 05:11] LABS: Absolute Neutrophil Ct (ANC) 6.25 x10^3/uL (1.56-6.13); BASOPHIL % 0.1 % (0.1-1.2); Basophil (Absolute #) 0.01 x10^3/uL (0.01-0.08); Eosinophil % 0.3 % (0.7-5.8); Eosinophil (Absolute #) 0.02 x10^3/uL (0.04-0.36); Hematocrit 39.9 % (34.1-44.9); Hemoglobin 14.1 g/dL (11.2-15.7); IMMATURE GRAN # 0.02 x10^3u/L (0.001-0.031); IMMATURE GRAN % 0.3 % (0.001-0.429); Lymphocyte (Absolute #) 0.41 x10^3/uL (1.18-3.74); Mean Cell Volume 83.3 fL (79.4-94.8); Mean Corpuscular Hemoglobin 29.4 pg (25.6-32.2); Mean Corpuscular Hgb Concent. 35.3 g/dL (32.2-35.5); Mean Platelet Volume 9.6 fL (9.4-12.3); Monocytes % 1.5 % (4.7-12.5); Neutrophil % 91.8 % (34.0-71.1); Platelet Count 263 x10^3/uL (182-369); Red Blood Count 4.79 x10^6/uL (3.93-5.22); Red Cell Distribution Width 12.4 % (11.7-14.4); White Blood Count 6.8 x10^3/uL (3.98-10.04)
[2024-07-28 05:42] LABS: ALBUMIN 4.3 g/dL (3.5-5.0); ANION GAP 15.3 MEQ/L (5-15); BILIRUBIN,TOTAL 0.9 mg/dL (0.2-1.3); Calcium 8.7 mg/dL (8.4-10.2); Creatinine 1 0.5 mg/dL (0.52-1.04); EST GLOMERULAR FILTRATION RATE 100.2 ML/MIN; Potassium 3.5 mmol/L (3.5-5.1); Total Protein 6.9 g/dL (6.3-8.2)
--- NOTE | 2024-07-28 05:42 | PCM.NOTE ---
Date and Time: 07/28/24 0541 Subjective Assessment: HPI: Ms. Drew is a 73-year-old female with a pmhx of oral cancer status post resection/chemo/radiation completed last month, PE/DVT (Apr 2024) on Eliquis, hypertension,right breast cancer s/p lumpectomy/radiation, partial thyroidectomy (on synthroid), hyperlipidemia, COPD, tobacco abuse who presented to ED from urgent care for further evaluation of hypoxia 07/27/24. Patient has complaints of a productive cough with yellow sputum, shortness of breath,diarrhea, chills, headache, and body aches since 07/21/24. She reports was diagnosed today with influenza and her brother last week secondary to complications of influenza. Denies fever, cp, abdominal pain, MATOS, dizziness, N/V/D.Upon arrival to ED patient was hypertensive, tachypneic, and hypoxic with oxygen saturations in the low 80s on RA. Patient was placed on 2L NC with noted improvement. CXR demonstrates hyperinflated lungs with chronic features. Lab findings remarkable for hyponatremia and hypomagnesemia, and positive influenza A. Patient given Tamiflu, doxycycline, aztreonam, duonebs and solumedrol in ED. Admit for COPD exacerbation secondary to influenza A, hyponatremia, and hypomagnesemia. Plan for supportive care and electrolyte replenishment. 07/28: Met with patient bedside. Endorses continued cough and dyspnea. Continues to require 2L oxygen, baseline RA. Discussed sodium levels still decreased. Will consult nephrology for recommendations. Patient with very little oral intake. Added ensure to each meal. - Review of Systems Constitutional: No Symptoms Eyes: No Symptoms Ears, Nose, & Throat: No Symptoms Respiratory: Cough, Short Of Breath Cardiac: No Symptoms Abdominal/Gastrointestinal: No Symptoms Genitourinary Symptoms: No Symptoms Musculoskeletal: No Symptoms Skin: No Symptoms Neurological: No Symptoms Psychological: No Symptoms Endocrine: No Symptoms Hematologic/Lymphatic: No Symptoms Immunological/Allergic: No Symptoms Objective Exam General Appearance: no apparent distress Neurologic Exam: alert, oriented x 3, cooperative Skin Exam: normal color Eye Exam: PERRL Ears, Nose, Throat Exam: normal ENT inspection Neck Exam: normal inspection Respiratory Exam: diminished breath sounds, wheezing Cardiovascular Exam: regular rate/rhythm, normal heart sounds Gastrointestinal/Abdomen Exam: soft, normal bowel sounds Extremity Exam: normal inspection Back Exam: normal inspection Pelvic Exam: deferred Rectal Exam: deferred Objective Data Vital Signs: Vital Signs - 24 hr Temp Pulse Resp BP BP Pulse Ox 07/28/24 04:00 97.4 F 56 L 18 134/67 90 L 07/28/24 00:00 97.9 F 61 18 122/65 93 L 07/27/24 20:00 98.4 F 55 L 17 129/66 92 L 07/27/24 17:32 63 18 91 L 07/27/24 16:45 97.9 F 58 L 16 139/67 90 L 07/27/24 15:57 97.9 F 58 L 16 139/67 90 L 07/27/24 15:55 58 L 16 91 L 07/27/24 15:50 91 L 07/27/24 15:00 58 L 18 141/75 95 07/27/24 14:46 91 L 07/27/24 14:30 157/70 96 07/27/24 14:00 60 18 135/64 91 L 07/27/24 13:30 65 20 130/62 95 07/27/24 13:00 62 24 137/90 93 L 07/27/24 12:55 92 L 07/27/24 12:30 58 H 149/83 97 07/27/24 12:00 61 H 138/88 93 L 07/27/24 11:48 98.5 F 61 35 H 165/67 88 L 07/27/24 11:46 62 H 165/67 95 Pain Assessment - Last Documented Pain Intensity 4 Intake and Output: Intake & Output 07/25/24 07/26/24 07/27/24 07/28/24 11:59 11:59 11:59 11:59 Intake Total 1333 Output Total 800 Balance 533 Weight 73.9 kg 73.9 kg Lab Results: Lab Results-Last 24 Hours 07/27/24 07/27/24 07/27/24 Range/Units 12:20 12:20 12:30 WBC (3.98-10.04) x10^3/uL RBC (3.93-5.22) x10^6/uL Hgb (11.2-15.7) g/dL Hct (34.1-44.9) % MCV (79.4-94.8) fL MCH (25.6-32.2) pg MCHC (32.2-35.5) g/dL RDW (11.7-14.4) % Plt Count (182-369) x10^3/uL MPV (9.4-12.3) fL Gran % (34.0-71.1) % Immature Gran % (Auto) (0.001-0.429) % Nucleat RBC Rel Count (0.00-0.2) % Eos # (Auto) (0.04-0.36) x10^3/uL Immature Gran # (Auto) (0.001-0.031) x10^3u/L Absolute Lymphs (auto) (1.18-3.74) x10^3/uL Absolute Monos (auto) (0.24-0.86) x10^3/uL Absolute Nucleated RBC (0.00-0.012) x10^3u/L Lymphocytes % (19.3-51.7) % Monocytes % (4.7-12.5) % Eosinophils % (0.7-5.8) % Basophils % (0.1-1.2) % Absolute Granulocytes (1.56-6.13) x10^3/uL Basophils # (0.01-0.08) x10^3/uL Sodium 123 L (135-145) mmol/L Potassium 3.5 (3.5-5.1) mmol/L Chloride 81 L (98-107) mmol/L Carbon Dioxide 32 H (22-30) mmol/L Anion Gap 13.8 (5-15) MEQ/L BUN 12 (7-17) mg/dL Creatinine 0.65 (0.52-1.04) mg/dL Estimated GFR 94.1 ML/MIN Glucose 89 (74-106) mg/dL Lactic Acid 1.3 (0.4-2.0) Calcium 9.1 (8.4-10.2) mg/dL Magnesium 1.5 L (1.6-2.3) mg/dL Total Bilirubin 0.90 (0.2-1.3) mg/dL AST 43 H (14-36) U/L ALT 39 H (0-35) U/L Alkaline Phosphatase 98 (38-126) U/L Troponin I < 0.012 (0.000-0.033) ng/mL NT-Pro-B Natriuret Pep 196 (<300) pg/mL Serum Total Protein 7.0 (6.3-8.2) g/dL Albumin 4.4 (3.5-5.0) g/dL TSH 3rd Generation (0.470-4.680) mIU/L Urine Color (Yellow) Urine Appearance (Clear) Urine pH (4.6-8.0) Ur Specific [place] (1.005-1.030) Urine Protein (Negative) Urine Glucose (UA) (Negative) mg/dL Urine Ketones (Negative) Urine Blood (Negative) Urine Nitrite (Negative) Urine Bilirubin (Negative) Urine Urobilinogen (0.2) mg/dL Ur Leukocyte Esterase (Negative) U Hyaline Cast (Auto) (0-2) /LPF Urine Microscopic RBC (0-5) /HPF Urine Microscopic WBC (0-5) /HPF Ur Epithelial Cells (None Seen) /HPF Urine Bacteria (None Seen) /HPF Urine Culture Reflexed (NO) Urine Sodium (30-90) mmol/L Influenza Type A Ag (NEGATIVE) Influenza Type B Ag (NEGATIVE) RSV (PCR) (NEGATIVE) SARS-CoV-2 (PCR) (NEGATIVE) Slides for Path Review 07/27/24 07/27/24 07/27/24 Range/Units 12:32 12:48 16:15 WBC 4.3 (3.98-10.04) x10^3/uL RBC 4.87 (3.93-5.22) x10^6/uL Hgb 14.6 (11.2-15.7) g/dL Hct 41.3 (34.1-44.9) % MCV 84.8 (79.4-94.8) fL MCH 30.0 (25.6-32.2) pg MCHC 35.4 (32.2-35.5) g/dL RDW 12.5 (11.7-14.4) % Plt Count 254 (182-369) x10^3/uL MPV 9.9 (9.4-12.3) fL Gran % 81.2 H (34.0-71.1) % Immature Gran % (Auto) 0.5 H (0.001-0.429) % Nucleat RBC Rel Count 0.0 (0.00-0.2) % Eos # (Auto) 0.02 L (0.04-0.36) x10^3/uL Immature Gran # (Auto) 0.02 (0.001-0.031) x10^3u/L Absolute Lymphs (auto) 0.46 L (1.18-3.74) x10^3/uL Absolute Monos (auto) 0.29 (0.24-0.86) x10^3/uL Absolute Nucleated RBC 0.00 (0.00-0.012) x10^3u/L Lymphocytes % 10.8 L (19.3-51.7) % Monocytes % 6.8 (4.7-12.5) % Eosinophils % 0.5 L (0.7-5.8) % Basophils % 0.2 (0.1-1.2) % Absolute Granulocytes 3.47 (1.56-6.13) x10^3/uL Basophils # 0.01 (0.01-0.08) x10^3/uL Sodium (135-145) mmol/L Potassium (3.5-5.1) mmol/L Chloride (98-107) mmol/L Carbon Dioxide (22-30) mmol/L Anion Gap (5-15) MEQ/L BUN (7-17) mg/dL Creatinine (0.52-1.04) mg/dL Estimated GFR ML/MIN Glucose (74-106) mg/dL Lactic Acid (0.4-2.0) Calcium (8.4-10.2) mg/dL Magnesium (1.6-2.3) mg/dL Total Bilirubin (0.2-1.3) mg/dL AST (14-36) U/L ALT (0-35) U/L Alkaline Phosphatase (38-126) U/L Troponin I < 0.012 (0.000-0.033) ng/mL NT-Pro-B Natriuret Pep (<300) pg/mL Serum Total Protein (6.3-8.2) g/dL Albumin (3.5-5.0) g/dL TSH 3rd Generation (0.470-4.680) mIU/L Urine Color (Yellow) Urine Appearance (Clear) Urine pH (4.6-8.0) Ur Specific [place] (1.005-1.030) Urine Protein (Negative) Urine Glucose (UA) (Negative) mg/dL Urine Ketones (Negative) Urine Blood (Negative) Urine Nitrite (Negative) Urine Bilirubin (Negative) Urine Urobilinogen (0.2) mg/dL Ur Leukocyte Esterase (Negative) U Hyaline Cast (Auto) (0-2) /LPF Urine Microscopic RBC (0-5) /HPF Urine Microscopic WBC (0-5) /HPF Ur Epithelial Cells (None Seen) /HPF Urine Bacteria (None Seen) /HPF Urine Culture Reflexed (NO) Urine Sodium (30-90) mmol/L Influenza Type A Ag POSITIVE A (NEGATIVE) Influenza Type B Ag NEGATIVE (NEGATIVE) RSV (PCR) NEGATIVE (NEGATIVE) SARS-CoV-2 (PCR) NEGATIVE (NEGATIVE) Slides for Path Review YES 07/27/24 07/27/24 07/27/24 Range/Units 19:00 19:00 19:13 WBC (3.98-10.04) x10^3/uL RBC (3.93-5.22) x10^6/uL Hgb (11.2-15.7) g/dL Hct (34.1-44.9) % MCV (79.4-94.8) fL MCH (25.6-32.2) pg MCHC (32.2-35.5) g/dL RDW (11.7-14.4) % Plt Count (182-369) x10^3/uL MPV (9.4-12.3) fL Gran % (34.0-71.1) % Immature Gran % (Auto) (0.001-0.429) % Nucleat RBC Rel Count (0.00-0.2) % Eos # (Auto) (0.04-0.36) x10^3/uL Immature Gran # (Auto) (0.001-0.031) x10^3u/L Absolute Lymphs (auto) (1.18-3.74) x10^3/uL Absolute Monos (auto) (0.24-0.86) x10^3/uL Absolute Nucleated RBC (0.00-0.012) x10^3u/L Lymphocytes % (19.3-51.7) % Monocytes % (4.7-12.5) % Eosinophils % (0.7-5.8) % Basophils % (0.1-1.2) % Absolute Granulocytes (1.56-6.13) x10^3/uL Basophils # (0.01-0.08) x10^3/uL Sodium (135-145) mmol/L Potassium (3.5-5.1) mmol/L Chloride (98-107) mmol/L Carbon Dioxide (22-30) mmol/L Anion Gap (5-15) MEQ/L BUN (7-17) mg/dL Creatinine (0.52-1.04) mg/dL Estimated GFR ML/MIN Glucose (74-106) mg/dL Lactic Acid (0.4-2.0) Calcium (8.4-10.2) mg/dL Magnesium (1.6-2.3) mg/dL Total Bilirubin (0.2-1.3) mg/dL AST (14-36) U/L ALT (0-35) U/L Alkaline Phosphatase (38-126) U/L Troponin I < 0.012 (0.000-0.033) ng/mL NT-Pro-B Natriuret Pep (<300) pg/mL Serum Total Protein (6.3-8.2) g/dL Albumin (3.5-5.0) g/dL TSH 3rd Generation (0.470-4.680) mIU/L Urine Color Yellow (Yellow) Urine Appearance Clear (Clear) Urine pH 5.0 (4.6-8.0) Ur Specific [place] <=1.005 (1.005-1.030) Urine Protein Negative (Negative) Urine Glucose (UA) Negative (Negative) mg/dL Urine Ketones 80 A (Negative) Urine Blood Negative (Negative) Urine Nitrite Negative (Negative) Urine Bilirubin Negative (Negative) Urine Urobilinogen 0.2 (0.2) mg/dL Ur Leukocyte Esterase Negative (Negative) U Hyaline Cast (Auto) NONE SEEN (0-2) /LPF Urine Microscopic RBC 0-2 (0-5) /HPF Urine Microscopic WBC 0-2 (0-5) /HPF Ur Epithelial Cells None Seen (None Seen) /HPF Urine Bacteria None Seen (None Seen) /HPF Urine Culture Reflexed NO (NO) Urine Sodium 19 L (30-90) mmol/L Influenza Type A Ag (NEGATIVE) Influenza Type B Ag (NEGATIVE) RSV (PCR) (NEGATIVE) SARS-CoV-2 (PCR) (NEGATIVE) Slides for Path Review 07/27/24 07/27/24 07/27/24 Range/Units 19:13 19:13 23:02 WBC (3.98-10.04) x10^3/uL RBC (3.93-5.22) x10^6/uL Hgb (11.2-15.7) g/dL Hct (34.1-44.9) % MCV (79.4-94.8) fL MCH (25.6-32.2) pg MCHC (32.2-35.5) g/dL RDW (11.7-14.4) % Plt Count (182-369) x10^3/uL MPV (9.4-12.3) fL Gran % (34.0-71.1) % Immature Gran % (Auto) (0.001-0.429) % Nucleat RBC Rel Count (0.00-0.2) % Eos # (Auto) (0.04-0.36) x10^3/uL Immature Gran # (Auto) (0.001-0.031) x10^3u/L Absolute Lymphs (auto) (1.18-3.74) x10^3/uL Absolute Monos (auto) (0.24-0.86) x10^3/uL Absolute Nucleated RBC (0.00-0.012) x10^3u/L Lymphocytes % (19.3-51.7) % Monocytes % (4.7-12.5) % Eosinophils % (0.7-5.8) % Basophils % (0.1-1.2) % Absolute Granulocytes (1.56-6.13) x10^3/uL Basophils # (0.01-0.08) x10^3/uL Sodium 122 L 124 L (135-145) mmol/L Potassium 3.6 3.6 (3.5-5.1) mmol/L Chloride 83 L 85 L (98-107) mmol/L Carbon Dioxide 24 26 (22-30) mmol/L Anion Gap 18.2 H 16.6 H (5-15) MEQ/L BUN 10 9 (7-17) mg/dL Creatinine 0.54 0.53 (0.52-1.04) mg/dL Estimated GFR 98.4 98.8 ML/MIN Glucose 161 H 152 H (74-106) mg/dL Lactic Acid (0.4-2.0) Calcium 9.0 8.8 (8.4-10.2) mg/dL Magnesium (1.6-2.3) mg/dL Total Bilirubin (0.2-1.3) mg/dL AST (14-36) U/L ALT (0-35) U/L Alkaline Phosphatase (38-126) U/L Troponin I (0.000-0.033) ng/mL NT-Pro-B Natriuret Pep (<300) pg/mL Serum Total Protein (6.3-8.2) g/dL Albumin (3.5-5.0) g/dL TSH 3rd Generation 1.202 (0.470-4.680) mIU/L Urine Color (Yellow) Urine Appearance (Clear) Urine pH (4.6-8.0) Ur Specific [place] (1.005-1.030) Urine Protein (Negative) Urine Glucose (UA) (Negative) mg/dL Urine Ketones (Negative) Urine Blood (Negative) Urine Nitrite (Negative) Urine Bilirubin (Negative) Urine Urobilinogen (0.2) mg/dL Ur Leukocyte Esterase (Negative) U Hyaline Cast (Auto) (0-2) /LPF Urine Microscopic RBC (0-5) /HPF Urine Microscopic WBC (0-5) /HPF Ur Epithelial Cells (None Seen) /HPF Urine Bacteria (None Seen) /HPF Urine Culture Reflexed (NO) Urine Sodium (30-90) mmol/L Influenza Type A Ag (NEGATIVE) Influenza Type B Ag (NEGATIVE) RSV (PCR) (NEGATIVE) SARS-CoV-2 (PCR) (NEGATIVE) Slides for Path Review 07/28/24 Range/Units 05:06 WBC 6.8 (3.98-10.04) x10^3/uL RBC 4.79 (3.93-5.22) x10^6/uL Hgb 14.1 (11.2-15.7) g/dL Hct 39.9 (34.1-44.9) % MCV 83.3 (79.4-94.8) fL MCH 29.4 (25.6-32.2) pg MCHC 35.3 (32.2-35.5) g/dL RDW 12.4 (11.7-14.4) % Plt Count 263 (182-369) x10^3/uL MPV 9.6 (9.4-12.3) fL Gran % 91.8 H (34.0-71.1) % Immature Gran % (Auto) 0.3 (0.001-0.429) % Nucleat RBC Rel Count 0.0 (0.00-0.2) % Eos # (Auto) 0.02 L (0.04-0.36) x10^3/uL Immature Gran # (Auto) 0.02 (0.001-0.031) x10^3u/L Absolute Lymphs (auto) 0.41 L (1.18-3.74) x10^3/uL Absolute Monos (auto) 0.10 L (0.24-0.86) x10^3/uL Absolute Nucleated RBC 0.00 (0.00-0.012) x10^3u/L Lymphocytes % 6.0 L (19.3-51.7) % Monocytes % 1.5 L (4.7-12.5) % Eosinophils % 0.3 L (0.7-5.8) % Basophils % 0.1 (0.1-1.2) % Absolute Granulocytes 6.25 H (1.56-6.13) x10^3/uL Basophils # 0.01 (0.01-0.08) x10^3/uL Sodium (135-145) mmol/L Potassium (3.5-5.1) mmol/L Chloride (98-107) mmol/L Carbon Dioxide (22-30) mmol/L Anion Gap (5-15) MEQ/L BUN (7-17) mg/dL Creatinine (0.52-1.04) mg/dL Estimated GFR ML/MIN Glucose (74-106) mg/dL Lactic Acid (0.4-2.0) Calcium (8.4-10.2) mg/dL Magnesium (1.6-2.3) mg/dL Total Bilirubin (0.2-1.3) mg/dL AST (14-36) U/L ALT (0-35) U/L Alkaline Phosphatase (38-126) U/L Troponin I (0.000-0.033) ng/mL NT-Pro-B Natriuret Pep (<300) pg/mL Serum Total Protein (6.3-8.2) g/dL Albumin (3.5-5.0) g/dL TSH 3rd Generation (0.470-4.680) mIU/L Urine Color (Yellow) Urine Appearance (Clear) Urine pH (4.6-8.0) Ur Specific [place] (1.005-1.030) Urine Protein (Negative) Urine Glucose (UA) (Negative) mg/dL Urine Ketones (Negative) Urine Blood (Negative) Urine Nitrite (Negative) Urine Bilirubin (Negative) Urine Urobilinogen (0.2) mg/dL Ur Leukocyte Esterase (Negative) U Hyaline Cast (Auto) (0-2) /LPF Urine Microscopic RBC (0-5) /HPF Urine Microscopic WBC (0-5) /HPF Ur Epithelial Cells (None Seen) /HPF Urine Bacteria (None Seen) /HPF Urine Culture Reflexed (NO) Urine Sodium (30-90) mmol/L Influenza Type A Ag (NEGATIVE) Influenza Type B Ag (NEGATIVE) RSV (PCR) (NEGATIVE) SARS-CoV-2 (PCR) (NEGATIVE) Slides for Path Review Radiology Exams: Radiology Procedures Category Date Time Status CHEST 1 VIEW (PORTABLE) Stat Exams 07/27/24 12:04 Completed Assessment/Plan (1) Acute respiratory failure with hypoxia Current Visit: Yes Status: Acute Assessment & Plan: -CXR reviewed with hyperinflated with chronic findings -Secondary to Flu A/copd exacerbation -Supplemental oxygen with goal spo2 > 91% -RT eval -Nebs/INH -Tamiflu for influenza A -consider CT /pulm consult if no improvement -Flu A + -Solumedrol 40mg bid -ABG if significant hypoxia/ lethargy 07/28: -dose decrease solumedrol to 40mg daily Code(s): J96.01 - ACUTE RESPIRATORY FAILURE WITH HYPOXIA (2) Influenza A Current Visit: Yes Status: Acute Assessment & Plan: -see ARF -Tamiflu -Supportive care Code(s): J10.1 - FLU DUE TO OTH IDENT INFLUENZA VIRUS W OTH RESP MANIFEST (3) COPD with acute exacerbation Current Visit: Yes Status: Acute Assessment & Plan: -See ARF Code(s): J44.1 - CHRONIC OBSTRUCTIVE PULMONARY DISEASE W (ACUTE) EXACERBATION (4) History of pulmonary embolism Current Visit: Yes Status: Acute Assessment & Plan: -Diagnosed April 2024 Continue home Eliquis Code(s): Z86.711 - PERSONAL HISTORY OF PULMONARY EMBOLISM (5) HTN (hypertension) Current Visit: Yes Status: Acute Assessment & Plan: -continue home meds Code(s): I10 - ESSENTIAL (PRIMARY) HYPERTENSION (6) HLD (hyperlipidemia) Current Visit: Yes Status: Acute Assessment & Plan: -continue statin Code(s): E78.5 - HYPERLIPIDEMIA, UNSPECIFIED (7) Smoker Current Visit: Yes Status: Acute Assessment & Plan: -advised cessation - nicotine patch Code(s): F17.200 - NICOTINE DEPENDENCE, UNSPECIFIED, UNCOMPLICATED (8) Oral-mouth cancer Current Visit: Yes Status: Acute Assessment & Plan: -Jaw/tongue - s/p resection/chemo/radiation completed last month -Pet Scan in June showed remission -Follows with Dr. Olguin (oncology) and Mele (rad oncololgy) Code(s): C06.9 - MALIGNANT NEOPLASM OF MOUTH, UNSPECIFIED (9) Hypomagnesemia Current Visit: Yes Status: Acute Assessment & Plan: -Mag level reviewed at 1.5- will replenish and recheck in the a.m. 07/28: -mag level reviewed and WNL - resolved Code(s): E83.42 - HYPOMAGNESEMIA (10) Hyponatremia Current Visit: Yes Status: Acute Assessment & Plan: -Patient states this is chronic -Poor oral consumption ?SIADH -Hypovolemic -IVF -Seizure precautions 07/28: -Neph consulted -? SIADH -Sodium tabs 1G TID -D/C fluids Code(s): E87.1 - HYPO-OSMOLALITY AND HYPONATREMIA (11) DVT (deep venous thrombosis) Current Visit: Yes Status: Acute Assessment & Plan: -Right leg - on Eliquis since April 2024 - continue Code(s): I82.409 - ACUTE EMBOLISM AND THOMBOS UNSP DEEP VN UNSP LOWER EXTREMITY (12) History of partial thyroidectomy Current Visit: Yes Status: Acute Assessment & Plan: -On synthroid -continue Code(s): E89.0 - POSTPROCEDURAL HYPOTHYROIDISM (13) History of right breast cancer Current Visit: Yes Status: Acute Assessment & Plan: -S/P lumpectomy and radiation VTE: Eliquis PPI: protonix Dispo: 1-2 days Code(s): J96.01 - ACUTE RESPIRATORY FAILURE WITH HYPOXIA (2) Influenza A Current Visit: Yes Status: Acute Code(s): J10.1 - FLU DUE TO OTH IDENT INFLUENZA VIRUS W OTH RESP MANIFEST (3) COPD with acute exacerbation Current Visit: Yes Status: Acute Code(s): J44.1 - CHRONIC OBSTRUCTIVE PULMONARY DISEASE W (ACUTE) EXACERBATION (4) History of pulmonary embolism Current Visit: Yes Status: Acute Code(s): Z86.711 - PERSONAL HISTORY OF PULMONARY EMBOLISM (5) HTN (hypertension) Current Visit: Yes Status: Acute Code(s): I10 - ESSENTIAL (PRIMARY) HYPERTENSION (6) HLD (hyperlipidemia) Current Visit: Yes Status: Acute Code(s): E78.5 - HYPERLIPIDEMIA, UNSPECIFIED (7) Smoker Current Visit: Yes Status: Acute Code(s): F17.200 - NICOTINE DEPENDENCE, UNSPECIFIED, UNCOMPLICATED (8) Oral-mouth cancer Current Visit: Yes Status: Acute Code(s): C06.9 - MALIGNANT NEOPLASM OF MOUTH, UNSPECIFIED (9) Hypomagnesemia Current Visit: Yes Status: Acute Code(s): E83.42 - HYPOMAGNESEMIA (10) Hyponatremia Current Visit: Yes Status: Acute Code(s): E87.1 - HYPO-OSMOLALITY AND HYPONATREMIA (11) DVT (deep venous thrombosis) Current Visit: Yes Status: Acute Code(s): I82.409 - ACUTE EMBOLISM AND THOMBOS UNSP DEEP VN UNSP LOWER EXTREMITY (12) History of partial thyroidectomy Current Visit: Yes Status: Acute Code(s): E89.0 - POSTPROCEDURAL HYPOTHYROIDISM (13) History of right breast cancer Current Visit: Yes Status: Acute Code(s): Z85.3 - PERSONAL HISTORY OF MALIGNANT NEOPLASM OF BREAST
[2024-07-28 08:52] LABS: Slide Review 1 YES
[2024-07-28] MEDS ORDERED: NON-FORMULARY ITEM (Potassium Chloride [Potassium Chloride] 20 MEQ Tab.Er.Prt) PO SCH (10:00)
[2024-07-28] MEDS ORDERED: NON-FORMULARY ITEM (Cholecalciferol (Vitamin D3) [Vitamin D3] 1,250 MCG Capsule) PO SCH (10:00)
[2024-07-28] MEDS ORDERED: NON-FORMULARY ITEM (Simvastatin [Simvastatin] 40 MG Tablet) PO SCH (10:00)
[2024-07-28] MEDS: Nicoderm CQ 21 MG TOP SCH (11:03)
[2024-07-28] MEDS: TOLVAPTAN PO ONE (15:00)
[2024-07-28] MEDS ORDERED: SODIUM CHLORIDE PO SCH (15:00)
[2024-07-28] MEDS: Klor Con PO ONE (18:46)
[2024-07-28 20:14] LABS: ANION GAP 11.5 MEQ/L (5-15); Calcium 9.5 mg/dL (8.4-10.2); Creatinine 1 0.67 mg/dL (0.52-1.04); EST GLOMERULAR FILTRATION RATE 93.4 ML/MIN; Potassium 3.5 mmol/L (3.5-5.1)
[2024-07-29] MEDS: Klor Con PO ONE ×2 (01:28→13:10)
--- NOTE | 2024-07-29 05:22 | PCM.NOTE ---
Date and Time: 07/29/24 0521 Subjective Assessment: HPI: Ms. Drew is a 73-year-old female with a pmhx of oral cancer status post resection/chemo/radiation completed last month, PE/DVT (Apr 2024) on Eliquis, hypertension,right breast cancer s/p lumpectomy/radiation, partial thyroidectomy (on synthroid), hyperlipidemia, COPD, tobacco abuse who presented to ED from urgent care for further evaluation of hypoxia 07/27/24. Patient has complaints of a productive cough with yellow sputum, shortness of breath,diarrhea, chills, headache, and body aches since 07/21/24. She reports was diagnosed today with influenza and her brother last week secondary to complications of influenza. Denies fever, cp, abdominal pain, MATOS, dizziness, N/V/D.Upon arrival to ED patient was hypertensive, tachypneic, and hypoxic with oxygen saturations in the low 80s on RA. Patient was placed on 2L NC with noted improvement. CXR demonstrates hyperinflated lungs with chronic features. Lab findings remarkable for hyponatremia and hypomagnesemia, and positive influenza A. Patient given Tamiflu, doxycycline, aztreonam, duonebs and solumedrol in ED. Admit for COPD exacerbation secondary to influenza A, hyponatremia, and hypomagnesemia. Plan for supportive care and electrolyte replenishment. 07/28: Met with patient bedside. Endorses continued cough and dyspnea. Continues to require 2L oxygen, baseline RA. Discussed sodium levels still decreased. Will consult nephrology for recommendations. Patient with very little oral intake. Added ensure to each meal. 07/29: Met with patient bedside. Endorses improvement in cough and dyspnea. Will attempt to wean oxygen. Nephrology consulted for hyponatremia. Sodium levels are improved after Samsca. Further instructions received to start fluid restriction. Most likely can discharge tomorrow if sodium levels improve. - Review of Systems Constitutional: Weakness Eyes: No Symptoms Ears, Nose, & Throat: Nose Congestion Respiratory: Cough, Short Of Breath, Wheezing Cardiac: No Symptoms Abdominal/Gastrointestinal: No Symptoms Genitourinary Symptoms: No Symptoms Musculoskeletal: No Symptoms Skin: No Symptoms Neurological: No Symptoms Psychological: No Symptoms Endocrine: No Symptoms Hematologic/Lymphatic: No Symptoms Immunological/Allergic: No Symptoms Objective Exam General Appearance: no apparent distress Neurologic Exam: alert, oriented x 3, cooperative Skin Exam: normal color Eye Exam: PERRL Ears, Nose, Throat Exam: normal ENT inspection Neck Exam: normal inspection Respiratory Exam: crackles/rales, wheezing Cardiovascular Exam: regular rate/rhythm, normal heart sounds Gastrointestinal/Abdomen Exam: soft Extremity Exam: normal inspection Back Exam: normal inspection Pelvic Exam: deferred Rectal Exam: deferred Objective Data Vital Signs: Vital Signs - 24 hr Temp Pulse Resp BP Pulse Ox 07/29/24 00:00 96.8 F 60 20 121/58 93 L 07/28/24 20:00 98.0 F 61 21 120/57 91 L 07/28/24 16:55 54 L 18 90 L 07/28/24 16:00 97.4 F 55 L 20 142/64 86 L 07/28/24 12:00 97.6 F 53 L 18 130/64 94 L 07/28/24 08:00 97.7 F 53 L 20 153/69 94 L 07/28/24 07:21 52 L 18 90 L Pain Assessment - Last Documented Pain Intensity 4 Pain Scale Used 0-10 Pain Scale Intake and Output: Intake & Output 07/26/24 07/27/24 07/28/24 07/29/24 11:59 11:59 11:59 11:59 Intake Total 1573 760 Output Total 1800 Balance -227 760 Weight 73.9 kg 73.9 kg Lab Results: Lab Results-Last 24 Hours 07/28/24 07/28/24 07/28/24 Range/Units 05:06 05:06 19:47 Sodium 123 L 128 L (135-145) mmol/L Potassium 3.5 3.5 (3.5-5.1) mmol/L Chloride 88 L 91 L (98-107) mmol/L Carbon Dioxide 24 29 (22-30) mmol/L Anion Gap 15.3 H 11.5 (5-15) MEQ/L BUN 10 16 (7-17) mg/dL Creatinine 0.50 L 0.67 (0.52-1.04) mg/dL Estimated GFR 100.2 93.4 ML/MIN Glucose 150 H 181 H (74-106) mg/dL Calcium 8.7 9.5 (8.4-10.2) mg/dL Magnesium 2.0 (1.6-2.3) mg/dL Total Bilirubin 0.90 (0.2-1.3) mg/dL AST 36 (14-36) U/L ALT 32 (0-35) U/L Alkaline Phosphatase 81 (38-126) U/L Serum Total Protein 6.9 (6.3-8.2) g/dL Albumin 4.3 (3.5-5.0) g/dL Triglycerides 97 (30-150) mg/dL Cholesterol 140 (50-200) mg/dL LDL Cholesterol 73 (30-100) mg/dL HDL Cholesterol 36 L (40-60) mg/dL Heart Disease Risk Ratio 4.0 Slides for Path Review YES Radiology Exams: Radiology Procedures Category Date Time Status CHEST 1 VIEW (PORTABLE) Stat Exams 07/27/24 12:04 Completed Assessment/Plan (1) Acute respiratory failure with hypoxia Current Visit: Yes Status: Acute Assessment & Plan: -CXR reviewed with hyperinflated with chronic findings -Secondary to Flu A/copd exacerbation -Supplemental oxygen with goal spo2 > 91% -RT eval -Nebs/INH -Tamiflu for influenza A -consider CT /pulm consult if no improvement -Flu A + -Solumedrol 40mg bid -ABG if significant hypoxia/ lethargy 07/28: -dose decrease solumedrol to 40mg daily 07/29: -Start prednisone 20mg bid dc solumedrol -continue tamiflu Code(s): J96.01 - ACUTE RESPIRATORY FAILURE WITH HYPOXIA (2) Influenza A Current Visit: Yes Status: Acute Assessment & Plan: -see ARF -Tamiflu -Supportive care Code(s): J10.1 - FLU DUE TO OTH IDENT INFLUENZA VIRUS W OTH RESP MANIFEST (3) COPD with acute exacerbation Current Visit: Yes Status: Acute Assessment & Plan: -See ARF Code(s): J44.1 - CHRONIC OBSTRUCTIVE PULMONARY DISEASE W (ACUTE) EXACERBATION (4) History of pulmonary embolism Current Visit: Yes Status: Acute Assessment & Plan: -Diagnosed April 2024 Continue home Eliquis Code(s): Z86.711 - PERSONAL HISTORY OF PULMONARY EMBOLISM (5) HTN (hypertension) Current Visit: Yes Status: Acute Assessment & Plan: -continue home meds Code(s): I10 - ESSENTIAL (PRIMARY) HYPERTENSION (6) HLD (hyperlipidemia) Current Visit: Yes Status: Acute Assessment & Plan: -continue statin Code(s): E78.5 - HYPERLIPIDEMIA, UNSPECIFIED (7) Smoker Current Visit: Yes Status: Acute Assessment & Plan: -advised cessation - nicotine patch Code(s): F17.200 - NICOTINE DEPENDENCE, UNSPECIFIED, UNCOMPLICATED (8) Oral-mouth cancer Current Visit: Yes Status: Acute Assessment & Plan: -Jaw/tongue - s/p resection/chemo/radiation completed last month -Pet Scan in June showed remission -Follows with Dr. Olguin (oncology) and Mele (rad oncololgy) Code(s): C06.9 - MALIGNANT NEOPLASM OF MOUTH, UNSPECIFIED (9) Hypomagnesemia Current Visit: Yes Status: Acute Assessment & Plan: -Mag level reviewed at 1.5- will replenish and recheck in the a.m. 07/28: -mag level reviewed and WNL - resolved Code(s): E83.42 - HYPOMAGNESEMIA (10) Hyponatremia Current Visit: Yes Status: Acute Assessment & Plan: -Patient states this is chronic -Poor oral consumption ?SIADH -Hypovolemic -IVF -Seizure precautions 07/28: -Neph consulted -? SIADH -Sodium tabs 1G TID -D/C fluids 07/29: -Nephrology consulted, samsca x 1 7.5mg dose given 07/28/24- sodium levels reviewed and now at 130 - Dr. Douglas would like to start fluid restriction and recheck labs in the morning. Code(s): E87.1 - HYPO-OSMOLALITY AND HYPONATREMIA (11) DVT (deep venous thrombosis) Current Visit: Yes Status: Acute Assessment & Plan: -Right leg - on Eliquis since April 2024 - continue Code(s): I82.409 - ACUTE EMBOLISM AND THOMBOS UNSP DEEP VN UNSP LOWER EXTREMITY (12) History of partial thyroidectomy Current Visit: Yes Status: Acute Assessment & Plan: -On synthroid -continue Code(s): E89.0 - POSTPROCEDURAL HYPOTHYROIDISM (13) History of right breast cancer Current Visit: Yes Status: Acute Assessment & Plan: -S/P lumpectomy and radiation VTE: Eliquis PPI: protonix Dispo: 1-2 days Code(s): J96.01 - ACUTE RESPIRATORY FAILURE WITH HYPOXIA (2) Influenza A Current Visit: Yes Status: Acute Code(s): J10.1 - FLU DUE TO OTH IDENT INFLUENZA VIRUS W OTH RESP MANIFEST (3) COPD with acute exacerbation Current Visit: Yes Status: Acute Code(s): J44.1 - CHRONIC OBSTRUCTIVE PULMONARY DISEASE W (ACUTE) EXACERBATION (4) History of pulmonary embolism Current Visit: Yes Status: Acute Code(s): Z86.711 - PERSONAL HISTORY OF PULMONARY EMBOLISM (5) HTN (hypertension) Current Visit: Yes Status: Acute Code(s): I10 - ESSENTIAL (PRIMARY) HYPERTENSION (6) HLD (hyperlipidemia) Current Visit: Yes Status: Acute Code(s): E78.5 - HYPERLIPIDEMIA, UNSPECIFIED (7) Smoker Current Visit: Yes Status: Acute Code(s): F17.200 - NICOTINE DEPENDENCE, UNSPECIFIED, UNCOMPLICATED (8) Oral-mouth cancer Current Visit: Yes Status: Acute Code(s): C06.9 - MALIGNANT NEOPLASM OF MOUTH, UNSPECIFIED (9) Hypomagnesemia Current Visit: Yes Status: Acute Code(s): E83.42 - HYPOMAGNESEMIA (10) Hyponatremia Current Visit: Yes Status: Acute Code(s): E87.1 - HYPO-OSMOLALITY AND HYPONATREMIA (11) DVT (deep venous thrombosis) Current Visit: Yes Status: Acute Code(s): I82.409 - ACUTE EMBOLISM AND THOMBOS UNSP DEEP VN UNSP LOWER EXTREMITY (12) History of partial thyroidectomy Current Visit: Yes Status: Acute Code(s): E89.0 - POSTPROCEDURAL HYPOTHYROIDISM (13) History of right breast cancer Current Visit: Yes Status: Acute Code(s): Z85.3 - PERSONAL HISTORY OF MALIGNANT NEOPLASM OF BREAST
[2024-07-29] MEDS: solu-MEDROL 40 MG, Sterile H2O 10 ml 1 ML IV SCH (09:19)
[2024-07-29] MEDS: Klor Con PO SCH (09:19)
[2024-07-29 09:24] LABS: Hematocrit 43.1 % (34.1-44.9); Hemoglobin 14.8 g/dL (11.2-15.7); Mean Cell Volume 86.7 fL (79.4-94.8); Mean Corpuscular Hemoglobin 29.8 pg (25.6-32.2); Mean Corpuscular Hgb Concent. 34.3 g/dL (32.2-35.5); Mean Platelet Volume 9.8 fL (9.4-12.3); Platelet Count 357 x10^3/uL (182-369); Red Blood Count 4.97 x10^6/uL (3.93-5.22); Red Cell Distribution Width 13.2 % (11.7-14.4); White Blood Count 9.5 x10^3/uL (3.98-10.04)
[2024-07-29 09:47] LABS: ALBUMIN 4.7 g/dL (3.5-5.0); ANION GAP 13.8 MEQ/L (5-15); BILIRUBIN,TOTAL 0.9 mg/dL (0.2-1.3); Calcium 9.5 mg/dL (8.4-10.2); Creatinine 1 0.64 mg/dL (0.52-1.04); EST GLOMERULAR FILTRATION RATE 94.4 ML/MIN; MAGNESIUM 2.2 mg/dL (1.6-2.3); Potassium 3.5 mmol/L (3.5-5.1); Total Protein 7.9 g/dL (6.3-8.2)
[2024-07-29 11:12] LABS: Lymphocytes 3 % (19.3-51.7); Monocyte 2 % (4.7-12.5); Neutrophils 95 % (34.0-71.1); Total Cells Counted 100
[2024-07-29 11:13] LABS: Platelet Estimate NORMAL (NORMAL)
[2024-07-29] MEDS ORDERED: TOLVAPTAN PO ONE (14:00)
--- NOTE | 2024-07-30 05:25 | PCM.NOTE ---
Date and Time: 07/30/24523 Subjective Assessment: HPI: Ms. Drew is a 73-year-old female with a pmhx of oral cancer status post resection/chemo/radiation completed last month, PE/DVT (Apr 2024) on Eliquis, hypertension,right breast cancer s/p lumpectomy/radiation, partial thyroidectomy (on synthroid), hyperlipidemia, COPD, tobacco abuse who presented to ED from urgent care for further evaluation of hypoxia 07/27/24. Patient has complaints of a productive cough with yellow sputum, shortness of breath,diarrhea, chills, headache, and body aches since 07/21/24. She reports was diagnosed today with influenza and her brother last week secondary to complications of influenza. Denies fever, cp, abdominal pain, MATOS, dizziness, N/V/D.Upon arrival to ED patient was hypertensive, tachypneic, and hypoxic with oxygen saturations in the low 80s on RA. Patient was placed on 2L NC with noted improvement. CXR demonstrates hyperinflated lungs with chronic features. Lab findings remarkable for hyponatremia and hypomagnesemia, and positive influenza A. Patient given Tamiflu, doxycycline, aztreonam, duonebs and solumedrol in ED. Admit for COPD exacerbation secondary to influenza A, hyponatremia, and hypomagnesemia. Plan for supportive care and electrolyte replenishment. 07/28: Met with patient bedside. Endorses continued cough and dyspnea. Continues to require 2L oxygen, baseline RA. Discussed sodium levels still decreased. Will consult nephrology for recommendations. Patient with very little oral intake. Added ensure to each meal. 07/29: Met with patient bedside. Endorses improvement in cough and dyspnea. Will attempt to wean oxygen. Nephrology consulted for hyponatremia. Sodium levels are improved after Samsca. Further instructions received to start fluid restriction. Most likely can discharge tomorrow if sodium levels improve. Objective Data Vital Signs: Vital Signs - 24 hr Temp Pulse Resp BP Pulse Ox 07/30/24 00:00 61 20 94 L 07/29/24 20:00 97.9 F 70 21 121/67 93 L 07/29/24 16:00 97.7 F 59 L 20 131/69 93 L 07/29/24 12:00 97.8 F 57 L 20 126/61 94 L 07/29/24 08:00 97.5 F 53 L 18 129/63 94 L 07/29/24 07:50 58 L 16 93 L Pain Assessment - Last Documented Pain Intensity 0 Pain Scale Used 0-10 Pain Scale Intake and Output: Intake & Output 07/27/24 07/28/24 07/29/24 07/30/24 11:59 11:59 11:59 11:59 Intake Total 1573 1460 360 Output Total 1800 Balance -227 1460 360 Weight 73.9 kg 73.9 kg 74.2 kg Lab Results: Lab Results-Last 24 Hours 07/29/24 07/29/24 Range/Units 08:42 08:42 WBC 9.5 (3.98-10.04) x10^3/uL RBC 4.97 (3.93-5.22) x10^6/uL Hgb 14.8 (11.2-15.7) g/dL Hct 43.1 (34.1-44.9) % MCV 86.7 (79.4-94.8) fL MCH 29.8 (25.6-32.2) pg MCHC 34.3 (32.2-35.5) g/dL RDW 13.2 (11.7-14.4) % Plt Count 357 D (182-369) x10^3/uL MPV 9.8 (9.4-12.3) fL Segmented Neutrophils 95 H (34.0-71.1) % Lymphocytes (Manual) 3 L (19.3-51.7) % Monocytes (Manual) 2 L (4.7-12.5) % Platelet Estimate NORMAL (NORMAL) RBC Morphology NORMAL Sodium 130 L (135-145) mmol/L Potassium 3.5 (3.5-5.1) mmol/L Chloride 94 L (98-107) mmol/L Carbon Dioxide 26 (22-30) mmol/L Anion Gap 13.8 (5-15) MEQ/L BUN 15 (7-17) mg/dL Creatinine 0.64 (0.52-1.04) mg/dL Estimated GFR 94.4 ML/MIN Glucose 91 (74-106) mg/dL Calcium 9.5 (8.4-10.2) mg/dL Magnesium 2.2 (1.6-2.3) mg/dL Total Bilirubin 0.90 (0.2-1.3) mg/dL AST 42 H (14-36) U/L ALT 35 (0-35) U/L Alkaline Phosphatase 90 (38-126) U/L Serum Total Protein 7.9 (6.3-8.2) g/dL Albumin 4.7 (3.5-5.0) g/dL Assessment/Plan (1) Acute respiratory failure with hypoxia Current Visit: Yes Status: Acute Assessment & Plan: -CXR reviewed with hyperinflated with chronic findings -Secondary to Flu A/copd exacerbation -Supplemental oxygen with goal spo2 > 91% -RT eval -Nebs/INH -Tamiflu for influenza A -consider CT /pulm consult if no improvement -Flu A + -Solumedrol 40mg bid -ABG if significant hypoxia/ lethargy 07/28: -dose decrease solumedrol to 40mg daily 07/29: -Start prednisone 20mg bid dc solumedrol -continue tamiflu Code(s): J96.01 - ACUTE RESPIRATORY FAILURE WITH HYPOXIA (2) Influenza A Current Visit: Yes Status: Acute Assessment & Plan: -see ARF -Tamiflu -Supportive care Code(s): J10.1 - FLU DUE TO OTH IDENT INFLUENZA VIRUS W OTH RESP MANIFEST (3) COPD with acute exacerbation Current Visit: Yes Status: Acute Assessment & Plan: -See ARF Code(s): J44.1 - CHRONIC OBSTRUCTIVE PULMONARY DISEASE W (ACUTE) EXACERBATION (4) History of pulmonary embolism Current Visit: Yes Status: Acute Assessment & Plan: -Diagnosed April 2024 Continue home Eliquis Code(s): Z86.711 - PERSONAL HISTORY OF PULMONARY EMBOLISM (5) HTN (hypertension) Current Visit: Yes Status: Acute Assessment & Plan: -continue home meds Code(s): I10 - ESSENTIAL (PRIMARY) HYPERTENSION (6) HLD (hyperlipidemia) Current Visit: Yes Status: Acute Assessment & Plan: -continue statin Code(s): E78.5 - HYPERLIPIDEMIA, UNSPECIFIED (7) Smoker Current Visit: Yes Status: Acute Assessment & Plan: -advised cessation - nicotine patch Code(s): F17.200 - NICOTINE DEPENDENCE, UNSPECIFIED, UNCOMPLICATED (8) Oral-mouth cancer Current Visit: Yes Status: Acute Assessment & Plan: -Jaw/tongue - s/p resection/chemo/radiation completed last month -Pet Scan in June showed remission -Follows with Dr. Olguin (oncology) and Mele (rad oncololgy) Code(s): C06.9 - MALIGNANT NEOPLASM OF MOUTH, UNSPECIFIED (9) Hypomagnesemia Current Visit: Yes Status: Acute Assessment & Plan: -Mag level reviewed at 1.5- will replenish and recheck in the a.m. 07/28: -mag level reviewed and WNL - resolved Code(s): E83.42 - HYPOMAGNESEMIA (10) Hyponatremia Current Visit: Yes Status: Acute Assessment & Plan: -Patient states this is chronic -Poor oral consumption ?SIADH -Hypovolemic -IVF -Seizure precautions 07/28: -Neph consulted -? SIADH -Sodium tabs 1G TID -D/C fluids 07/29: -Nephrology consulted, samsca x 1 7.5mg dose given 07/28/24- sodium levels reviewed and now at 130 - Dr. Douglas would like to start fluid restriction and recheck labs in the morning. Code(s): E87.1 - HYPO-OSMOLALITY AND HYPONATREMIA (11) DVT (deep venous thrombosis) Current Visit: Yes Status: Acute Assessment & Plan: -Right leg - on Eliquis since April 2024 - continue Code(s): I82.409 - ACUTE EMBOLISM AND THOMBOS UNSP DEEP VN UNSP LOWER EXTREMITY (12) History of partial thyroidectomy Current Visit: Yes Status: Acute Assessment & Plan: -On synthroid -continue Code(s): E89.0 - POSTPROCEDURAL HYPOTHYROIDISM (13) History of right breast cancer Current Visit: Yes Status: Acute Assessment & Plan: -S/P lumpectomy and radiation VTE: Eliquis PPI: protonix Dispo: 1-2 days Code(s): J96.01 - ACUTE RESPIRATORY FAILURE WITH HYPOXIA (2) Influenza A Current Visit: Yes Status: Acute Code(s): J10.1 - FLU DUE TO OTH IDENT INFLUENZA VIRUS W OTH RESP MANIFEST (3) COPD with acute exacerbation Current Visit: Yes Status: Acute Code(s): J44.1 - CHRONIC OBSTRUCTIVE PULMO NARY DISEASE W (ACUTE) EXACERBATION (4) History of pulmonary embolism Current Visit: Yes Status: Acute Code(s): Z86.711 - PERSONAL HISTORY OF PULMONARY EMBOLISM (5) HTN (hypertension) Current Visit: Yes Status: Acute Code(s): I10 - ESSENTIAL (PRIMARY) HYPERTENSION (6) HLD (hyperlipidemia) Current Visit: Yes Status: Acute Code(s): E78.5 - HYPERLIPIDEMIA, UNSPECIFIED (7) Smoker Current Visit: Yes Status: Acute Code(s): F17.200 - NICOTINE DEPENDENCE, UNSPECIFIED, UNCOMPLICATED (8) Oral-mouth cancer Current Visit: Yes Status: Acute Code(s): C06.9 - MALIGNANT NEOPLASM OF MOUTH, UNSPECIFIED (9) Hypomagnesemia Current Visit: Yes Status: Acute Code(s): E83.42 - HYPOMAGNESEMIA (10) Hyponatremia Current Visit: Yes Status: Acute Code(s): E87.1 - HYPO-OSMOLALITY AND HYPONATREMIA (11) DVT (deep venous thrombosis) Current Visit: Yes Status: Acute Code(s): I82.409 - ACUTE EMBOLISM AND THOMBOS UNSP DEEP VN UNSP LOWER EXTREMITY (12) History of partial thyroidectomy Current Visit: Yes Status: Acute Code(s): E89.0 - POSTPROCEDURAL HYPOTHYROIDISM (13) History of right breast cancer Current Visit: Yes Status: Acute Code(s): Z85.3 - PERSONAL HISTORY OF MALIGNANT NEOPLASM OF BREAST
[2024-07-30 07:07] LABS: Absolute Neutrophil Ct (ANC) 5.97 x10^3/uL (1.56-6.13); BASOPHIL % 0.1 % (0.1-1.2); Basophil (Absolute #) 0.01 x10^3/uL (0.01-0.08); Eosinophil % 0.8 % (0.7-5.8); Eosinophil (Absolute #) 0.06 x10^3/uL (0.04-0.36); Hematocrit 41.5 % (34.1-44.9); Hemoglobin 14.4 g/dL (11.2-15.7); IMMATURE GRAN # 0.06 x10^3u/L (0.001-0.031); IMMATURE GRAN % 0.8 % (0.001-0.429); Lymphocyte (Absolute #) 0.77 x10^3/uL (1.18-3.74); Lymphocytes % 10.1 % (19.3-51.7); Mean Cell Volume 85.6 fL (79.4-94.8); Mean Corpuscular Hemoglobin 29.7 pg (25.6-32.2); Mean Corpuscular Hgb Concent. 34.7 g/dL (32.2-35.5); Mean Platelet Volume 9.2 fL (9.4-12.3); Monocyte (Absolute #) 0.77 x10^3/uL (0.24-0.86); Monocytes % 10.1 % (4.7-12.5); Neutrophil % 78.1 % (34.0-71.1); Platelet Count 357 x10^3/uL (182-369); Red Blood Count 4.85 x10^6/uL (3.93-5.22); Red Cell Distribution Width 13.1 % (11.7-14.4); White Blood Count 7.6 x10^3/uL (3.98-10.04)
[2024-07-30 07:20] LABS: ALBUMIN 4.5 g/dL (3.5-5.0); BILIRUBIN,TOTAL 0.9 mg/dL (0.2-1.3); Calcium 9.5 mg/dL (8.4-10.2); Creatinine 1 0.69 mg/dL (0.52-1.04); EST GLOMERULAR FILTRATION RATE 92.7 ML/MIN; MAGNESIUM 1.8 mg/dL (1.6-2.3); Potassium 3.4 mmol/L (3.5-5.1); Total Protein 7.4 g/dL (6.3-8.2)
--- NOTE | 2024-07-30 12:15 | PCM.DS ---
Discharge Summary Date of Admission: 07/27/24 15:25 Date of Discharge: 07/30/24 Admitting Physician: GABY DUTTA MD Consults: Consults on Case 07/28/24 09:29 Consult Nephrology ROUTINE Primary Care Provider: ALIA ROSARIO Allergies Allergies ciprofloxacin [From Cipro] Allergy (Verified 07/27/24 11:47) erythromycin base Allergy (Verified 07/27/24 11:47) Penicillins Allergy (Verified 07/27/24 15:45) Sulfa (Sulfonamide Antibiotics) Allergy (Verified 07/27/24 11:47) Hospital Summary - Hospital Course Hospital Course: HPI: Ms. Drew is a 73-year-old female with a pmhx of oral cancer status post resection/chemo/radiation completed last month, PE/DVT (Apr 2024) on Eliquis, hy pertension,right breast cancer s/p lumpectomy/radiation, partial thyroidectomy (on synthroid), hyperlipidemia, COPD, tobacco abuse who presented to ED from urgent care for further evaluation of hypoxia 07/27/24. Patient has complaints of a productive cough with yellow sputum, shortness of breath,diarrhea, chills, headache, and body aches since 07/21/24. She reports was diagnosed today with influenza and her brother last week secondary to complications of influenza. Denies fever, cp, abdominal pain, MATOS, dizziness, N/V/D.Upon arrival to ED patient was hypertensive, tachypneic, and hypoxic with oxygen saturations in the low 80s on RA. Patient was placed on 2L NC with noted i mprovement. CXR demonstrates hyperinflated lungs with chronic features. Lab findings remarkable for hyponatremia and hypomagnesemia, and positive influenza A. Patient given Tamiflu, doxycycline, aztreonam, duonebs and solumedrol in ED. Admit for COPD exacerbation secondary to influenza A, hyponatremia, and hypomagnesemia. Plan for supportive care and electrolyte replenishment. Dyspnea and cough improved. Patient does not qualify for home oxygen. Hyponatremia improved. Nephrology consulted -patient received Samsca x 1 dose - placed on 1.2L fluid restriction. Patient to contact office for labs next Wednesday08/04/24. They will follow up with Patient on 08/07/24. Patient agreeable to plan. Will dis charge with Tamiflu and prednisone. Discharge Note New Diagnosis: New Medications: Follow Up: Results pending: Outpatient testing to order: Latest Assessment & Plan 1) Acute respiratory failure with hypoxia Current Visit: Yes Status: Acute Assessment & Plan: -CXR reviewed with hyperinflated with chronic findings -Secondary to Flu A/copd exacerbation -Supplemental oxygen with goal spo2 > 91% -RT eval -Nebs/INH -Tamiflu for influenza A -consider CT /pulm consult if no improvement -Flu A + -Solumedrol 40mg bid -ABG if significant hypoxia/ lethargy 07/28: -dose decrease solumedrol to 40mg daily 07/29: -Start prednisone 20mg bid dc solumedrol -continue tamiflu Code(s): J96.01 - ACUTE RESPIRATORY FAILURE WITH HYPOXIA (2) Influenza A Current Visit: Yes Status: Acute Assessment & Plan: -see ARF -Tamiflu -Supportive care Code(s): J10.1 - FLU DUE TO OTH IDENT INFLUENZA VIRUS W OTH RESP MANIFEST (3) COPD with acute exacerbation Current Visit: Yes Status: Acute Assessment & Plan: -See ARF Code(s): J44.1 - CHRONIC OBSTRUCTIVE PULMONARY DISEASE W (ACUTE) EXACERBATION (4) History of pulmonary embolism Current Visit: Yes Status: Acute Assessment & Plan: -Diagnosed April 2024 Continue home Eliquis Code(s): Z86.711 - PERSONAL HISTORY OF PULMONARY EMBOLISM (5) HTN (hypertension) Current Visit: Yes Status: Acute Assessment & Plan: -continue home meds Code(s): I10 - ESSENTIAL (PRIMARY) HYPERTENSION (6) HLD (hyperlipidemia) Current Visit: Yes Status: Acute Assessment & Plan: -continue statin Code(s): E78.5 - HYPERLIPIDEMIA, UNSPECIFIED (7) Smoker Current Visit: Yes Status: Acute Assessment & Plan: -advised cessation - nicotine patch Code(s): F17.200 - NICOTINE DEPENDENCE, UNSPECIFIED, UNCOMPLICATED (8) Oral-mouth cancer Current Visit: Yes Status: Acute Assessment & Plan: -Jaw/tongue - s/p resection/chemo/radiation completed last month -Pet Scan in June showed remission -Follows with Dr. Olguin (oncology) and Mele (rad oncololgy) Code(s): C06.9 - MALIGNANT NEOPLASM OF MOUTH, UNSPECIFIED (9) Hypomagnesemia Current Visit: Yes Status: Acute Assessment & Plan: -Mag level reviewed at 1.5- will replenish and recheck in the a.m. 07/28: -mag level reviewed and WNL - resolved Code(s): E83.42 - HYPOMAGNESEMIA (10) Hyponatremia Current Visit: Yes Status: Acute Assessment & Plan: -Patient states this is chronic -Poor oral consumption ?SIADH -Hypovolemic -IVF -Seizure precautions 07/28: -Neph consulted -? SIADH -Sodium tabs 1G TID -D/C fluids 07/29: -Nephrology consulted, samsca x 1 7.5mg dose given 07/28/24- sodium levels reviewed and now at 130 - Dr. Douglas would like to start fluid restriction and recheck labs in the morning. (11) DVT (deep venous thrombosis) Current Visit: Yes Status: Acute Assessment & Plan: -Right leg - on Eliquis since April 2024 - continue Code(s): I82.409 - ACUTE EMBOLISM AND THOMBOS UNSP DEEP VN UNSP LOWER EXTREMITY (12) History of partial thyroidectomy Current Visit: Yes Status: Acute Assessment & Plan: -On synthroid -continue Code(s): E89.0 - POSTPROCEDURAL HYPOTHYROIDISM (13) History of right breast cancer Current Visit: Yes Status: Acute Assessment & Plan: -S/P lumpectomy and radiation VTE: Eliquis PPI: protonix Dispo: 1-2 days I spent 35 minutes [id number] with the patient on the day of discharge performing discharge exam, discussing hospital stay and discharge instructions with patient and caregivers, preparation of discharge records, prescriptions & referral forms and addressing any questions/concerns the patient had as documented above. - Vitals & Intake/Output Vital Signs: Vital Signs Temperature 97.5 F 07/30/24 08:00 Pulse Rate 78 07/30/24 09:10 Respiratory Rate 20 07/30/24 09:10 Blood Pressure 145/65 07/30/24 08:00 O2 Sat by Pulse Oximetry 93 L 07/30/24 09:10 Intake & Output: Intake & Output 07/28/24 07/29/24 07/30/24 07/31/24 11:59 11:59 11:59 11:59 Intake Total 1573 1460 420 Output Total 1800 Balance -227 1460 420 Weight 73.9 kg 74.2 kg 72.1 kg - Lab Result Diagrams: 07/30/24 06:58 07/30/24 06:58 Lab Results-Last 24 Hrs: Lab Results-Last 24 Hours 07/30/24 07/30/24 Range/Units 06:58 06:58 WBC 7.6 (3.98-10.04) x10^3/uL RBC 4.85 (3.93-5.22) x10^6/uL Hgb 14.4 (11.2-15.7) g/dL Hct 41.5 (34.1-44.9) % MCV 85.6 (79.4-94.8) fL MCH 29.7 (25.6-32.2) pg MCHC 34.7 (32.2-35.5) g/dL RDW 13.1 (11.7-14.4) % Plt Count 357 (182-369) x10^3/uL MPV 9.2 L (9.4-12.3) fL Gran % 78.1 H (34.0-71.1) % Immature Gran % (Auto) 0.8 H (0.001-0.429) % Nucleat RBC Rel Count 0.0 (0.00-0.2) % Eos # (Auto) 0.06 (0.04-0.36) x10^3/uL Immature Gran # (Auto) 0.06 H (0.001-0.031) x10^3u/L Absolute Lymphs (auto) 0.77 L (1.18-3.74) x10^3/uL Absolute Monos (auto) 0.77 (0.24-0.86) x10^3/uL Absolute Nucleated RBC 0.00 (0.00-0.012) x10^3u/L Lymphocytes % 10.1 L (19.3-51.7) % Monocytes % 10.1 (4.7-12.5) % Eosinophils % 0.8 (0.7-5.8) % Basophils % 0.1 (0.1-1.2) % Absolute Granulocytes 5.97 (1.56-6.13) x10^3/uL Basophils # 0.01 (0.01-0.08) x10^3/uL Sodium 131 L (135-145) mmol/L Potassium 3.4 L (3.5-5.1) mmol/L Chloride 94 L (98-107) mmol/L Carbon Dioxide 30 (22-30) mmol/L Anion Gap 11.0 (5-15) MEQ/L BUN 21 H (7-17) mg/dL Creatinine 0.69 (0.52-1.04) mg/dL Estimated GFR 92.7 ML/MIN Glucose 89 (74-106) mg/dL Calcium 9.5 (8.4-10.2) mg/dL Magnesium 1.8 (1.6-2.3) mg/dL Total Bilirubin 0.90 (0.2-1.3) mg/dL AST 47 H (14-36) U/L ALT 58 H (0-35) U/L Alkaline Phosphatase 84 (38-126) U/L Serum Total Protein 7.4 (6.3-8.2) g/dL Albumin 4.5 (3.5-5.0) g/dL Micro Results-Entire Visit: Microbiology 07/27/24 12:20 Blood Culture - Preliminary Blood 07/27/24 12:30 Blood Culture - Preliminary Blood - Procedures and Test Procedures and Tests throughout Hospitalization: Therapy Orders & Screens 07/27/24 12:54 Respiratory Therapy Assessment DAILY Comment: 07/27/24 15:35 Oxygen Nasal Cannula 2 lpm Comment: Respiratory Therapy Consult ONCE Comment: Reason For Exam: 07/27/24 15:55 Respiratory Therapy Assessment DAILY Comment: Diagnosis: Dyspnea/Flu A/ hyponatremia/hypomagnesemia/COPD exacerbation 07/27/24 16:42 Respiratory Therapy Consult ONCE Comment: Reason For Exam: Diagnosis: Dyspnea/Flu A/ hyponatremia/hypomagnesemia/COPD exacerbation 07/27/24 17:12 Smoking Cessation Education ONCE Comment: Diagnosis: Dyspnea/Flu A/ hyponatremia/hypomagnesemia/COPD exacerbation Smoking Status: Current some day smoker How long have you smoked: years Do you dip or chew tobacco: No Discharge Exam General Appearance: no apparent distress Neurologic Exam: alert, oriented x 3, cooperative Eye Exam: PERRL Ears, Nose, Throat Exam: normal ENT inspection Neck Exam: normal inspection Respiratory Exam: diminished breath sounds Cardiovascular Exam: regular rate/rhythm, normal heart sounds Gastrointestinal/Abdomen Exam: soft, normal bowel sounds Pelvic Exam: deferred Rectal Exam: deferred Back Exam: normal inspection Extremity Exam: normal inspection Skin Exam: normal color Final Diagnosis/Problem List - Final Discharge Diagnosis/Problem (1) Acute respiratory failure with hypoxia Current Visit: Yes Status: Resolved Code(s): J96.01 - ACUTE RESPIRATORY FAILURE WITH HYPOXIA (2) Influenza A Current Visit: Yes Status: Acute Code(s): J10.1 - FLU DUE TO OTH IDENT INFLUENZA VIRUS W OTH RESP MANIFEST (3) COPD with acute exacerbation Current Visit: Yes Status: Acute Code(s): J44.1 - CHRONIC OBSTRUCTIVE PULMONARY DISEASE W (ACUTE) EXACERBATION (4) History of pulmonary embolism Current Visit: Yes Status: Acute Code(s): Z86.711 - PERSONAL HISTORY OF PULMONARY EMBOLISM (5) HTN (hypertension) Current Visit: Yes Status: Acute Code(s): I10 - ESSENTIAL (PRIMARY) HYPERTENSION (6) HLD (hyperlipidemia) Current Visit: Yes Status: Acute Code(s): E78.5 - HYPERLIPIDEMIA, UNSPECIFIED (7) Smoker Current Visit: Yes Status: Acute Code(s): F17.200 - NICOTINE DEPENDENCE, UNSPECIFIED, UNCOMPLICATED (8) Oral-mouth cancer Current Visit: Yes Status: Acute Code(s): C06.9 - MALIGNANT NEOPLASM OF MOUTH, UNSPECIFIED (9) Hypomagnesemia Current Visit: Yes Status: Acute Code(s): E83.42 - HYPOMAGNESEMIA (10) Hyponatremia Current Visit: Yes Status: Acute Code(s): E87.1 - HYPO-OSMOLALITY AND HYPONATREMIA (11) DVT (deep venous thrombosis) Current Visit: Yes Status: Acute Code(s): I82.409 - ACUTE EMBOLISM AND THOMBOS UNSP DEEP VN UNSP LOWER EXTREMITY (12) History of partial thyroidectomy Current Visit: Yes Status: Acute Code(s): E89.0 - POSTPROCEDURAL HYPOTHYROID ISM (13) History of right breast cancer Current Visit: Yes Status: Acute Code(s): Z85.3 - PERSONAL HISTORY OF MALIGNANT NEOPLASM OF BREAST - Discharge Discharge Date: 07/30/24 Disposition: Home, Self-Care Condition: Stable Prescriptions: New Oseltamivir 75 mg [Tamiflu 75MG Capsule] 75 mg PO BID 3 Days #6 cap Prednisone 20 mg [Deltasone 20 mg] 20 mg PO BID 5 Days #10 tablet Nicotine 21 mg [Nicoderm CQ 21 MG] 21 mg TOP DAILY 42 Days #42 patch Continue Levothyroxine Sodium 75 Mcg [Synthroid 75 Mcg] 1 tab PO DAILY Cholecalciferol (Vitamin D3) [Vitamin D3] 2,000 unit PO DAILY Apixaban [Eliquis] 1 tab PO BID PANTOPRAZOLE 40 mg Tablet [Protonix 40MG Tablet] 1 tab PO BID Metoprolol Succinate 100 mg [Toprol Xl 100 MG] 1 tab PO DAILY Simvastatin 1 tab PO DAILY Potassium Chloride 1 tab PO DAILY Discontinued Spironolactone 1 tab PO DAILY Outpatient Orders: CMP Time Frame: 08/04/24, Facility: [facility], Location: LABORATORY [facility] Time Frame: 08/04/24, Facility: [facility], Location: LABORATORY Additional Instructions: CALL DR DOUGLAS OFFICE TOMORROW FOR APPT. DR DOUGLAS WOULD LIKE TO SEE YOU IN [place] OFFICE ON 08/07/24 AND HAVE LABS DRAWN THIS Wednesday08/04/24 Follow up with: CASSIDY DOUGLAS [CONSULTING PHYSICIAN] - (CALL OFFICE TOMORROW FOR APPT) ALIA ROSARIO MD [Primary Care Provider] -
[2024-07-30 12:35] VITALS: BP 121/59; PULSE 68; RESP 17; TEMP 97.3; O2SAT 91
--- NOTE | 2024-07-31 12:43 | CONS ---
REASON FOR CONSULTATION: Hyponatremia. I thank Dr. Krista Villa for the kind referral. HISTORY OF PRESENT ILLNESS: Patient is a 73-year-old lady with past medical history of oral cancer status post resection, chemotherapy, radiation, PE, on Eliquis. Patient has underlying COPD. Patient came to emergency room, was hypertensive, tachypneic, short of breath. She was given intranasal oxygen. She was given DuoNeb, Solu-Medrol, and admitted with COPD exacerbation. During the course of hospitalization, sodium was noted to be persistently low. The sodium levels have been around 123 mEq/L, potassium levels were around 3.5. Patient was given intravenous normal saline. In spite of that, her sodium levels did not improve. As a result, renal consultation was called. PAST MEDICAL HISTORY: 1) COPD. 2) History of PE. 3) Hypertension. 4) Chronic smoking, nicotine addiction. 5) Oral cancer. 6) Dyslipidemia. PAST SURGICAL HISTORY: 1) History of partial thyroidectomy. 2) History of lumpectomy and radiation therapy. 3) Status post resection, chemo, and radiation of tongue. HOME MEDICATIONS: Reviewed. ALLERGIES: Reviewed. FAMILY HISTORY: Reviewed. SOCIAL HISTORY: Reviewed. REVIEW OF SYSTEMS: This is a tele consult. History: Patient has difficulty in hearing. History was also interpreted through patient's nurse, Laura. No nausea, vomiting, diarrhea. Shortness of breath is at baseline. No progressive leg swelling. Patient is an avid fluid intaker. Not on any nonsteroidals or antipsychotics at this time. All systems were reviewed in detail, pertinent mentioned here and in History of Present Illness, the rest were negative. PHYSICAL EXAMINATION: VITAL SIGNS: Reviewed. CHEST: Occasional rhonchi reported. CARDIOVASCULAR: S1, S2 normal reported. EXTREMITIES: No to trace edema. NEUROLOGIC: Alert, awake, oriented x3. LABORATORY DATA: All labs during the hospitalization were reviewed in extensive detail. In pertinent, sodium 123 mEq, potassium 3.5 mEq. ASSESSMENT AND PLAN: 1) Hyponatremia. There is no evidence of fluid losses. Patient is also not having any history suggestive of congestive heart failure. Anti-proBNP was low. I think patient is an avid fluid intaker and that having low osmolar diet plus SIADH may be contributing factors. Last urine sodium was low, but urine specific gravity was extremely low at less than 1.005. Urine osmolality is pending. Patient had been given NS challenge with normal saline without any improvement in sodium level. I will give her a small dose of Samsca 7.5 mg. Goal is to have correction of 8 mEq in 24 hours. We will repeat metabolic profile in 8 hours post Samsca. If patient is having rapid correction, we will put her on D5W. No fluid restriction at this time. Send urine sodium and osmolality. TSH was reviewed. We can send a.m. cortisol levels. 2) Hypokalemia. Give 20 mEq of potassium, replacing other electrolytes with sodium levels. 3) Hypomagnesemia, replaced. 4) Acute on chronic respiratory failure, improving. Continue supplemental oxygen, nebs, Tamiflu. 5) Influenza A. Continue Tamiflu. 6) Chronic obstructive pulmonary disease with acute exacerbation. Continue present treatment. Others closely follow the patient.
[2024-07-31 14:03] LABS: Osmolality-Se/Pl 258 mOsmol/kg (280-301)
[2024-07-31 16:39] LABS: Osmolality, Urine 204 mOsmol/kg (.)
[2024-07-31 16:39] LABS: Osmolality, Urine 204 mOsmol/kg (.)
== END 2024-07-30 13:10 | disposition home or self-care (01) ==
LOC: ED 11:37 → MED SURG 15:25
PROVIDERS: ADMIT Internal Medicine; ATTEND Internal Medicine
DX: J96.01 Acute respiratory failure with hypoxia (principal); J10.1 Influenza due to other identified influenza virus with other respiratory manifestations; J44.1 Chronic obstructive pulmonary disease with (acute) exacerbation; Z86.711 Personal history of pulmonary embolism; I10 Essential (primary) hypertension; E78.5 Hyperlipidemia, unspecified; F17.200 Nicotine dependence, unspecified, uncomplicated; C06.9 Malignant neoplasm of mouth, unspecified; E83.42 Hypomagnesemia; E87.1 Hypo-osmolality and hyponatremia; I82.401 Acute embolism and thrombosis of unspecified deep veins of right lower extremity; Z85.3 Personal history of malignant neoplasm of breast; E89.0 Postprocedural hypothyroidism; Z79.01 Long term (current) use of anticoagulants; Z79.899 Other long term (current) drug therapy
CPT/HCPCS: 0241U; 36415; 71045; 80048; 80053; 80061; 81001; 83605; 83721; 83735; 83880; 83930; 83935; 84300; 84443; 84484; 85025; 87040; 93005; 93041; 93268; 94640; 94760; 94762; 96374; 99285; G0378; Q3014; J2919; A9270-GY; J3475